=== PATIENT | male | born 1955 | race Caucasian/White ===

== ENCOUNTER → 2019-09-25 10:46 | Outpatient (CLI) | payer BC, SELFPAY | PROVIDERS: PCP Family Medicine; Visit Provider Family Medicine | DX: R00.2 Palpitations (principal) | CPT/HCPCS: 93225; 93226 ==

== ENCOUNTER → 2019-09-30 10:07 | Outpatient (CLI) | payer BC, SELFPAY | PROVIDERS: PCP Family Medicine; Visit Provider Family Medicine | DX: R00.2 Palpitations (principal) | CPT/HCPCS: 93306 ==

== ENCOUNTER → 2019-10-15 09:05 | Outpatient (CLI) | payer BC, SELFPAY ==
[2019-10-15 10:31] LABS: Basophils % 0.7 % (0.1-2.0); Eosinophils # 0.2 K/mm3 (0.0-0.4); Hematocrit 35.8 % (42.0-52.0); Hemoglobin 10.4 g/dL (14.1-18.0); Lymphocytes # 1.8 K/mm3 (0.7-4.5); Mean Corpuscular HGB Conc 29.1 g/dL (31.8-35.4); Mean Corpuscular Hemoglobin 24.1 pg (27.0-31.2); Mean Corpuscular Volume 82.8 fl (80-94); Mean Platelet Volume 7.9 fl (7.4-10.4); Monocytes # 0.4 K/mm3 (0.1-1.0); Monocytes % 7.7 % (1.7-9.3); Neutrophils # 3.3 K/mm3 (1.8-7.8); Neutrophils % 57.7 % (37.0-80.0); Platelet Count 335 K/mm3 (142-424); Red Blood Count 4.33 M/mm3 (4.60-6.20); Red Cell Distribution Width 15.6 % (11.5-17.5); White Blood Count 5.7 K/mm3 (4.8-10.8)
== END ==
PROVIDERS: Visit Provider Family Medicine
DX: D64.9 Anemia, unspecified (principal)
CPT/HCPCS: 36415; 85025

== ENCOUNTER 2019-10-24 07:59 | Day surgery (SDC) | payer BC, SELFPAY ==
[2019-09-15 15:52] VITALS: BMI 25.7
[2019-10-24] VITALS (7 sets, daily range): BP systolic 94–163; BP diastolic 63–90; PULSE 68–77; RESP 16–18; TEMP 36.2; O2SAT 97–100
[2019-10-24 08:39] LABS: POC Glucose,Bedside 109 (70-110)
--- NOTE | 2019-10-24 08:56 | P.PN_ITS ---
[facility] Anesthesia Checklist - Patient Identification Patient Identification: Arm Band - Structural Data Admitted From: Home Planned Operative Procedure/s: colonoscopy Consent for Planned Operative Procedure(s) Verified: Yes Verified Documents: Surgical Consent, History and Physical - NPO Status Verified Time NPO: 00:00 - Additional verifications Anesthesia Reactions: No - Airway Assessment C-Spine Mobility Assessed: Yes (mp2) TMJ Mobility Assessed: Yes Dentition: Partials - Neurological Assessment Level of Consciousness: Awake, Alert - Anesthesia Plan Anesthesia Risk discussed: Yes Anesthesia Plan: Verified ASA Class: II Anesthesia Type: MAC [facility] History I have reviewed the patient's past medical history: Yes Medical History: Reports:: Diabetes Mellitus Type 2, Hyperlipidemia Denies:: Cancer, Diabetes Mellitus Type 1, Internal Pacemaker, MRSA, Seizures *Have you ever received a pneumonia vaccine?: Yes *Have you received a flu vaccine this season?: Yes Other Medical History: Reports: Anemia Anesthesia experience/problems:: nac Other Surgeries: Yes: No Previous Surgery. No: Pacemaker Amputation: No Fractures: No - *Social History Educational Level: Completed College Smoking Status: Former smoker Tobacco Type: cigarettes Alcohol Intake: never Substance Use Type: denies use *Occupational Status:: employed Housing: house Household Members: spouse *Travel in the last 8 weeks: None Family Hx:: Cancer, Diabetes, Hyperlipidemia, Hypertension
--- NOTE | 2019-10-24 09:45 | HMH.PROC ---
[facility] Procedure Note Procedure Note:: Colonoscopy Procedure Report: Colonoscopy with APC ablation and cold snare polypectomy Endoscopist: Daniel Gómez II, MD Referring physician: Lobo Rondon MD Date of Procedure: October 24, 2019 Equipment: Olympus 180 variable stiffness pediatric colonoscope Sedation: MAC sedation Indication: Mr. Roy is a 64-year-old gentleman who is here for diagnostic colonoscopy secondary to rectal bleeding and iron deficiency anemia. He has never had a colonoscopy. He reports a nosebleed in June 2019 and his hemoglobin and hematocrit were normal. He had a bout of rectal bleeding 1 time in mid August 2019 which was bright red blood in the commode. At that time he had blood work that showed hemoglobin 9.1 and hematocrit 27.5 with an MCV of 79.6. He had 1 bout of left flank discomfort about a week ago. He reports no significant abdominal pain, weight loss, change in his bowel habits or family history of colon cancer. He reports no use of anticoagulation or NSAIDs. Procedure: Prior to the procedure, a history and physical exam was performed, and patient's medications and allergies were reviewed. The risks, benefits and alternatives of the sedation and procedure were discussed with the patient. All questions were answered and informed consent was obtained. The patient was brought to the procedure room. Patient identification and proposed procedure were verified by the physician and the nurse. The patient was placed in a left lateral decubitus position and the scope was passed under direct vision. Throughout the procedure, the patient's blood pressure, pulse, and oxygen saturations were monitored continuously. The colonoscopy was accomplished without difficulty. The patient tolerated the procedure well. Findings: On digital rectal examination there was normal rectal tone. There were no external hemorrhoids. The prostate was 2+, smooth, soft, symmetric without nodules. The colonoscope was introduced through the anal canal to the rectum and advanced to the cecum. The ileocecal valve and appendiceal orifice were identified. The scope was advanced a short distance into the ileum which appeared grossly normal. The scope was then withdrawn into the colon. There was a 4 mm angiodysplasia/AVM of the cecum that was cauterized using APC ablation. The remainder of the ascending, transverse colon were normal. There was a diminutive 4 mm polyp in the descending colon and a 3 mm polyp in the sigmoid colon both of which were removed via cold snare polypectomy. The rectum itself was normal. Upon retroflexion within the rectum there were grade 1-2 internal hemorrhoids.The preparation was excellent throughout with [place] Preparation Score of 9. The cecal time was 12 minutes. Impression: 1. Cecal AVM/angiodysplasia status post APC ablation 2. Diminutive colonic polyps x2 3. Grade 1-2 internal hemorrhoids Plan: I do suspect the bleeding was hemorrhoidal in nature. However, I do not feel that the hemorrhoids would explain the anemia. I do feel that the angiodysplasia of the cecum may have resulted in some chronic gastrointestinal blood loss. It is also possible that he has other angiodysplasias/AVMs of the upper and mid bowel. I will recommend Hemoccult testing. If the patient is strongly Hemoccult positive, I would consider upper endoscopy and possibly video capsule enteroscopy/M2A. I will follow-up the polyp histology and recommend repeat screening/surveillance colonoscopy again in 7 years if the polyps are adenomatous. I would encourage bulk fiber supplementation on a maintenance basis.
== END 2019-10-24 10:44 | disposition home or self-care (01) ==
PROVIDERS: PCP Family Medicine; Visit Provider Internal Medicine Gastroenterology
PROC: 0DJD8ZZ Inspection of Lower Intestinal Tract, Via Natural or Artificial Opening Endoscopic (ICD-10-PCS; CPT 45378; principal; 2019-10-24 09:00)
DX: K55.20 Angiodysplasia of colon without hemorrhage; K63.5 Polyp of colon; K64.0 First degree hemorrhoids; E78.5 Hyperlipidemia, unspecified; E11.9 Type 2 diabetes mellitus without complications
CPT/HCPCS: 45388; 45385; 82962; C2618

== ENCOUNTER → 2019-10-25 06:00 | Outpatient (CLI) | payer BC, SELFPAY ==
[2019-10-29 13:45] LABS: Occult Blood,Stool Negative (Negative)
== END ==
PROVIDERS: Visit Provider Internal Medicine Gastroenterology
DX: D50.9 Iron deficiency anemia, unspecified (principal)
CPT/HCPCS: 82272; G0328

== ENCOUNTER → 2019-10-26 06:00 | Outpatient (CLI) | payer BC, SELFPAY ==
[2019-10-29 13:46] LABS: Occult Blood,Stool Positive (Negative)
== END ==
PROVIDERS: Visit Provider Internal Medicine Gastroenterology
DX: D50.9 Iron deficiency anemia, unspecified (principal)
CPT/HCPCS: 82272; G0328

== ENCOUNTER → 2019-10-29 13:17 | Outpatient (CLI) | payer BC, SELFPAY ==
[2019-10-29 13:46] LABS: Occult Blood,Stool Positive (Negative)
== END ==
PROVIDERS: Visit Provider Internal Medicine Gastroenterology
DX: D50.9 Iron deficiency anemia, unspecified (principal)
CPT/HCPCS: 82272; G0328

== ENCOUNTER 2019-11-07 06:52 | Day surgery (SDC) | payer BC, SELFPAY ==
[2019-11-04 08:50] VITALS: BMI 25.7
[2019-11-07] VITALS (7 sets, daily range): BP systolic 101–153; BP diastolic 63–85; PULSE 56–74; RESP 18; TEMP 35.8–36.4; O2SAT 95–100
--- NOTE | 2019-11-07 07:24 | HMH.ANESCL ---
[facility] Anesthesia Checklist - Patient Identification Patient Identification: Arm Band, Verbal (Name & ) - Structural Data Admitted From: Home Planned Operative Procedure/s: EGD Consent for Planned Operative Procedure(s) Verified: Yes Verified Documents: Surgical Consent, History and Physical - NPO Status Verified Time NPO: 00:00 - Chart Verification Results Verified: CBC, BMP, UA - Additional verifications Anesthesia Reactions: No - Airway Assessment C-Spine Mobility Assessed: Yes TMJ Mobility Assessed: Yes Dentition: Partials (upper) - Neurological Assessment Level of Consciousness: Awake, Alert, Appropriate, Follows Commands Hx Seizures: No Numbness or tingling in extremities: No - Anesthesia Plan Anesthesia Risk discussed: Yes Anesthesia Plan: Verified ASA Class: III Anesthesia Type: MAC [facility] History I have reviewed the patient's past medical history: Yes Medical History: Reports:: Diabetes Mellitus Type 2, Hyperlipidemia, Transient Ischemic Attacks (TIA) Denies:: Cancer, Diabetes Mellitus Type 1, Internal Pacemaker, MRSA, Seizures *Have you ever received a pneumonia vaccine?: Yes *Have you received a flu vaccine this season?: Yes Other Medical History: Reports: Anemia Anesthesia experience/problems:: No prior complications Other Surgeries: Yes: No Previous Surgery. No: Pacemaker Amputation: No Fractures: No - *Social History Educational Level: Completed GED/General Educational Development Smoking Status: Former smoker Tobacco Type: cigarettes #Yrs smoked (if former smoker): 2 Alcohol Intake: current Alcohol Intake Frequency:: holidays/special occasions only Substance Use Type: denies use *Occupational Status:: employed Housing: house Household Members: spouse *Travel in the last 8 weeks: None Family Hx:: Cancer, Diabetes
--- NOTE | 2019-11-07 07:58 | HMH.PROC ---
[facility] Procedure Note Procedure Note:: Upper Endoscopy Procedure Report: Esophagogastroduodenoscopy with APC ablation and cold biopsies Endoscopost: Daniel Gómez II, MD Referring Physician: Lobo Rondon MD Date of Procedure: November 07, 2019 Equipment: Olympus GIF 180 standard upper endoscope Sedation: MAC sedation Indications: Mr. Roy is a 64-year-old gentleman with iron deficiency anemia and Hemoccult positive stool. He initially had some rectal bleeding. His hemoglobin and hematocrit in mid August 2019 was 9.1 and 27.5 with an MCV of 79.6. He has some rare left sided abdominal discomfort. He did have a colonoscopy on October 24, 2019 and there was a cecal angiodysplasia that was cauterized using APC ablation. He had 2 diminutive polyps (tubular adenoma x1/hyperplastic polyp x1) which were removed. He subsequently had Hemoccult testing and 2 out of 3 Hemoccult cards were positive for occult blood. He reports no abdominal pain, heartburn, reflux or dysphagia. He has no indigestion or dyspepsia. He takes lemon water and Metamucil regularly. This is his first upper endoscopy performed diagnostically for evaluation of occult GI bleeding. Procedure: Prior to the procedure, a history and physical exam was performed, and patient's medications and allergies were reviewed. The risks, benefits and alternatives of the sedation and procedure were discussed with the patient. All questions were answered and informed consent was obtained. The patient was brought to the procedure room. Patient identification and proposed procedure were verified by the physician and the nurse. The patient was placed in a left lateral decubitus position and the scope was passed under direct vision. Throughout the procedure, the patient's blood pressure, pulse, and oxygen saturations were monitored continuously. The upper GI endoscopy was accomplished without difficulty. The patient tolerated the procedure well. Findings: The scope was passed directly into the upper esophagus and advanced to the third portion of the duodenum. There was a single angiodysplasia/AVM in the duodenum that was cauterized using APC ablation. Cold biopsies were taken from the duodenum to rule out celiac disease. The duodenal mucosa and conniventes were otherwise normal with no evidence of scalloping, erosions or ulceration of the duodenum. The scope was withdrawn through a normal bulb and pylorus into the stomach. There was some mild linear reactive gastropathy of the antrum. There was some chronic gastritis of the body and fundus of the stomach. Cold biopsies were taken along the lesser curvature for H. pylori. Upon retroflexion there was no evidence of a hiatal hernia. The scope was then withdrawn into the esophagus. There was no evidence of reflux esophagitis, Coughlin's or Schatzki's ring. There were no esophageal varices. The remainder of the esophageal mucosa was normal. Impression: 1. 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 Chronic gastritis with some mild antral reactive gastropathy?rule out H. pylori Plan: I will follow-up the biopsies. I do feel that the patient is Hemoccult positive stool and anemia are related to the gastrointestinal AVMs/angiodysplasias. If the patient remains Hemoccult positive or anemic, I would consider video capsule enteroscopy/M2A.
[2019-11-07 18:06] LABS: POC Glucose,Bedside 110 (70-110)
== END 2019-11-07 09:00 | disposition home or self-care (01) ==
PROVIDERS: PCP Family Medicine; Visit Provider Internal Medicine Gastroenterology
PROC: 0DJ08ZZ Inspection of Upper Intestinal Tract, Via Natural or Artificial Opening Endoscopic (ICD-10-PCS; CPT 43235; principal; 2019-11-07 08:00)
DX: D50.8 Other iron deficiency anemias (principal); K31.811 Angiodysplasia of stomach and duodenum with bleeding; K29.50 Unspecified chronic gastritis without bleeding; Z86.010 Personal history of colon polyps; E11.9 Type 2 diabetes mellitus without complications; Z79.84 Long term (current) use of oral hypoglycemic drugs
CPT/HCPCS: 43254; 43270; 82962; C2618; J2704

== ENCOUNTER → 2019-11-14 15:10 | Outpatient (CLI) | payer BC, SELFPAY ==
[2019-11-24 15:50] LABS: Occult Blood,Stool Positive (Negative)
== END ==
PROVIDERS: Visit Provider Internal Medicine Gastroenterology
DX: K92.1 Melena (principal)
CPT/HCPCS: 82272; G0328

== ENCOUNTER → 2019-11-17 15:19 | Outpatient (CLI) | payer BC, SELFPAY ==
[2019-11-24 15:50] LABS: Occult Blood,Stool Positive (Negative)
== END ==
PROVIDERS: Visit Provider Internal Medicine Gastroenterology
DX: K92.1 Melena (principal)
CPT/HCPCS: 82272; G0328

== ENCOUNTER → 2019-11-22 15:23 | Outpatient (CLI) | payer BC, SELFPAY ==
[2019-11-24 15:50] LABS: Occult Blood,Stool Positive (Negative)
== END ==
PROVIDERS: Visit Provider Internal Medicine Gastroenterology
DX: K92.1 Melena (principal)
CPT/HCPCS: 82272; G0328

== ENCOUNTER → 2019-12-22 08:34 | Outpatient (CLI) | payer BC, SELFPAY ==
[2019-12-22 09:18] LABS: Basophils % 0.7 % (0.1-2.0); Eosinophils # 0.2 K/mm3 (0.0-0.4); Eosinophils % 3.7 % (0.1-12.0); Hematocrit 39.3 % (42.0-52.0); Hemoglobin 12.4 g/dL (14.1-18.0); Lymphocytes # 1.9 K/mm3 (0.7-4.5); Lymphocytes % 35.2 % (10-50); Mean Corpuscular HGB Conc 31.6 g/dL (31.8-35.4); Mean Corpuscular Hemoglobin 25.4 pg (27.0-31.2); Mean Corpuscular Volume 80.4 fl (80-94); Mean Platelet Volume 7.8 fl (7.4-10.4); Monocytes # 0.4 K/mm3 (0.1-1.0); Monocytes % 8.1 % (1.7-9.3); Neutrophils # 2.9 K/mm3 (1.8-7.8); Neutrophils % 52.3 % (37.0-80.0); Platelet Count 214 K/mm3 (142-424); Red Blood Count 4.89 M/mm3 (4.60-6.20); Red Cell Distribution Width 17.7 % (11.5-17.5); White Blood Count 5.5 K/mm3 (4.8-10.8)
[2019-12-22 11:10] LABS: Ferritin 8.02 ng/ml (17.9-464)
[2019-12-23 08:17] LABS: Iron 40 ug/dL (38-169); UIBC 319 ug/dL (111-343)
[2019-12-23 09:54] LABS: Iron Saturation 11 % (15-55)
== END ==
PROVIDERS: Visit Provider Internal Medicine Gastroenterology
DX: D64.9 Anemia, unspecified (principal); K92.1 Melena
CPT/HCPCS: 36415; 82728; 83540; 83550; 85025

== ENCOUNTER → 2019-12-25 14:12 | Outpatient (CLI) | payer BC, SELFPAY ==
[2019-12-25 14:49] LABS: Occult Blood,Stool Positive (Negative)
== END ==
PROVIDERS: Visit Provider Internal Medicine Gastroenterology
DX: D64.9 Anemia, unspecified (principal); K92.1 Melena
CPT/HCPCS: 82272; G0328

== ENCOUNTER → 2020-03-16 09:57 | Outpatient (CLI) | payer BC, SELFPAY ==
--- NOTE | 2020-03-16 10:01 | XR_ITS ---
PROCEDURE: XR KUB CLINICAL INDICATION: ANEMIA,UNSPECIFIED patient swallowed endoscopy pill 03/11/2020 COMPARISON: No exams were available for comparison FINDINGS: Gas pattern-The bowel gas pattern is unremarkable. No obvious obstruction. There are 2 smoothly marginated tubular structures projecting over the right iliac bone and possibly within the cecum. They do not have the typical appearance of a swallowed camera pill and could be undigested pills or possibly calcified granulomas in the right buttock.. There are scattered calcifications within the spleen. There are few phleboliths in the pelvis. IMPRESSION: Curious tubular structures projecting over the iliac bone and likely within the cecum not quite typical of the ingested camera pill though this cannot be entirely excluded. Dictated by: Dr. Duran Rossi MD 03/16/2020 10:39 Dr. Duran Rossi MD in [place] 03/16/2020 10:39
== END ==
PROVIDERS: PCP Family Medicine; Visit Provider Internal Medicine Gastroenterology
DX: D64.9 Anemia, unspecified (principal)
CPT/HCPCS: 74018

== ENCOUNTER → 2020-04-28 13:37 | Outpatient (CLI) | payer BC, SELFPAY ==
[2020-04-28 15:11] LABS: Coronavirus 19 IgG Antibody Negative (Negative); Coronavirus 19 IgM Antibody Negative (Negative)
== END ==
PROVIDERS: Visit Provider Internal Medicine Gastroenterology
DX: Z01.818 Encounter for other preprocedural examination (principal); R93.3 Abnormal findings on diagnostic imaging of other parts of digestive tract
CPT/HCPCS: 36415; 86328

== ENCOUNTER 2020-04-30 06:52 | Day surgery (SDC) | payer BC, SELFPAY ==
[2020-04-23 13:34] VITALS: BMI 24.7
[2020-04-30] VITALS (10 sets, daily range): BP systolic 94–153; BP diastolic 60–91; PULSE 50–74; RESP 16–18; TEMP 36.2; O2SAT 97–99
[2020-04-30 07:24] LABS: POC Glucose,Bedside 106 (70-110)
--- NOTE | 2020-04-30 07:50 | HMH.PROC ---
[facility] Procedure Note Procedure Note:: Push enteroscopy/small bowel enteroscopy procedure Report: Upper small bowel push enteroscopy with APC ablation and cold biopsies Endoscopost: Daniel Gómez II, MD Referring Physician: Lobo Rondon MD Date of Procedure: April 30, 2020 Equipment: Olympus PCF 180 pediatric colonoscope (variable stiffness) Sedation: MAC sedation Indications: Mr. Roy is a 64-year-old gentleman with iron deficiency anemia and Hemoccult positive stool. He has had only one episode of overt bleeding. He has been Hemoccult positive on more than one occasion. In mid August his hemoglobin and hematocrit were 9.1 and 27.5. His EGD did show duodenal angiodysplasia and reactive gastropathy. A repeat Hemoccult test was again positive. His ferritin was 8 with an iron saturation of 11%. He had a colonoscopy with me in October 2019 that showed a cecal AVM that was ablated using APC and 2 diminutive colon polyps (tubular adenoma x1/hyperplastic polyp x1) which were removed. He did have M2A video capsule enteroscopy on March 10, 2020. This did show numerous upper small bowel AVMs/angiodysplasias. The patient is here today for small bowel enteroscopy/push enteroscopy with possible ablation. Procedure: Prior to the procedure, a history and physical exam was performed, and patient's medications and allergies were reviewed. The risks, benefits and alternatives of the sedation and procedure were discussed with the patient. All questions were answered and informed consent was obtained. The patient was brought to the procedure room. Patient identification and proposed procedure were verified by the physician and the nurse. The patient was placed in a left lateral decubitus position and the scope was passed under direct vision. Throughout the procedure, the patient's blood pressure, pulse, and oxygen saturations were monitored continuously. The upper small bowel enteroscopy was accomplished without difficulty. The patient tolerated the procedure well. Findings: The scope was passed directly into the upper esophagus and advanced to the mid jejunum. The scope was advanced maximally. At the very far reach of the colonoscope, there was active heme identified from a bleeding AVM. Because it was just out of reach, eventually the area was cleared and any visible AVMs/angiodysplasias in this region were cauterized. A total of 8 AVMs/angiodysplasias were cauterized in the jejunum and distal duodenum using APC argon plasma coagulation. This was discerned to be the actual source of his obscure GI blood loss. All visible AVMs were cauterized and the prior bleeding AVM stopped with coagulation/control of bleeding. The scope was withdrawn to a mildly edematous bulb (mild peptic duodenitis of bulb) and normal pylorus into the stomach. There was mild linear reactive gastropathy of the antrum. There was evidence of chronic atrophic gastritis of the body and fundus. Biopsies were taken from the fundus of the stomach. Upon retroflexion there was no hiatal hernia. The scope was then withdrawn into the esophagus. There was no evidence of reflux esophagitis or Coughlin's. The remainder of the esophageal mucosa was normal. Impression: 1. Bleeding AVMs/angiodysplasias (proximal/mid small intestine?duodenum and jejunum) with 1 actively bleeding AVM status post APC ablation 2. Chronic atrophic gastritis Plan: The patient has not required blood transfusions or parenteral iron infusions. However, he has had moderate anemia. I would continue oral iron replacement on a maintenance basis. If the patient has any further overt bleeding, I would recommend repeat enteroscopy or even single or double balloon enteroscopy. I will discussed the findings with the patient and family. I will follow up the biopsies. Certainly atrophic gastritis can play a role with iron deficiency.
--- NOTE | 2020-04-30 09:09 | HMH.ANESCL ---
[facility] Anesthesia Checklist - Patient Identification Patient Identification: Arm Band - Structural Data Admitted From: Home Planned Operative Procedure/s: push enteroscopy Consent for Planned Operative Procedure(s) Verified: Yes Verified Documents: Surgical Consent, History and Physical - NPO Status Verified Time NPO: 00:00 - Additional verifications Anesthesia Reactions: No - Airway Assessment C-Spine Mobility Assessed: Yes (mp2) TMJ Mobility Assessed: Yes Dentition: Poor Dentition - Neurological Assessment Level of Consciousness: Awake, Alert - Anesthesia Plan Anesthesia Risk discussed: Yes Anesthesia Plan: Verified ASA Class: III Anesthesia Type: MAC [facility] History I have reviewed the patient's past medical history: Yes Medical History: Reports:: Diabetes Mellitus Type 2, Hyperlipidemia, Transient Ischemic Attacks (TIA) Denies:: Cancer, Diabetes Mellitus Type 1, Internal Pacemaker, MRSA, Seizures *Have you ever received a pneumonia vaccine?: Yes *Have you received a flu vaccine this season?: No Other Medical History: Reports: Anemia Anesthesia experience/problems:: nac Other Surgeries: Yes: EGD. No: Pacemaker Amputation: No Fractures: No - *Social History Last grade of school completed: GED Smoking Status: Never smoker Tobacco Type: cigarettes #Yrs smoked (if former smoker): 2 Alcohol Intake: never Alcohol Intake Frequency:: holidays/special occasions only Substance Use Type: denies use *Occupational Status:: employed Housing: house Household Members: spouse *Travel in the last 8 weeks: None Family Hx:: Cancer, Diabetes
[2020-04-30 10:01] LABS: Basophils % 0.7 % (0.1-2.0); Eosinophils # 0.1 K/mm3 (0.0-0.4); Eosinophils % 2.1 % (0.1-12.0); Hematocrit 41.7 % (42.0-52.0); Hemoglobin 13.3 g/dL (14.1-18.0); Lymphocytes # 1.9 K/mm3 (0.7-4.5); Lymphocytes % 29.7 % (10-50); Mean Corpuscular HGB Conc 31.9 g/dL (31.8-35.4); Mean Corpuscular Hemoglobin 28.2 pg (27.0-31.2); Mean Corpuscular Volume 88.2 fl (80-94); Mean Platelet Volume 7.7 fl (7.4-10.4); Monocytes # 0.6 K/mm3 (0.1-1.0); Monocytes % 8.7 % (1.7-9.3); Neutrophils # 3.8 K/mm3 (1.8-7.8); Neutrophils % 58.8 % (37.0-80.0); Platelet Count 207 K/mm3 (142-424); Red Blood Count 4.73 M/mm3 (4.60-6.20); Red Cell Distribution Width 14.5 % (11.5-17.5); White Blood Count 6.4 K/mm3 (4.8-10.8)
[2020-04-30 10:08] LABS: Iron 57 ug/dL (49-181)
[2020-04-30 10:18] LABS: Total Iron Binding Capacity 332 ug/dL (261-462)
[2020-04-30 10:44] LABS: Ferritin 18.2 ng/ml (17.9-464)
== END 2020-04-30 10:30 | disposition home or self-care (01) ==
LOC: OUTP 06:53
PROVIDERS: PCP Family Medicine; Visit Provider Internal Medicine Gastroenterology
PROC: (CPT 44360; principal; 2020-04-30 08:00)
DX: Q27.33 Arteriovenous malformation of digestive system vessel (principal); K29.40 Chronic atrophic gastritis without bleeding; Z87.19 Personal history of other diseases of the digestive system; D50.9 Iron deficiency anemia, unspecified; E78.5 Hyperlipidemia, unspecified; E11.9 Type 2 diabetes mellitus without complications; Z72.0 Tobacco use; Z80.9 Family history of malignant neoplasm, unspecified; Z83.3 Family history of diabetes mellitus; Z86.73 Personal history of transient ischemic attack (TIA), and cerebral infarction without residual deficits; Z79.82 Long term (current) use of aspirin; Z79.84 Long term (current) use of oral hypoglycemic drugs
CPT/HCPCS: 44369; 44361; 36415; 82728; 82962; 83540; 83550; 85025; C2618

== ENCOUNTER → 2020-07-26 08:37 | Outpatient (CLI) | payer BC, SELFPAY ==
[2020-07-29 08:54] LABS: Occult Blood,Stool Positive (Negative)
== END ==
LOC: LAB 07-29 08:38 → LAB.DROPOF 07-30 10:05
PROVIDERS: Visit Provider Nurse Practitioner Family
DX: D64.9 Anemia, unspecified (principal); K92.1 Melena
CPT/HCPCS: 82272; G0328

== ENCOUNTER → 2020-07-26 10:06 | Outpatient (CLI) | payer BC, SELFPAY ==
[2020-07-26 10:31] LABS: Basophils # 0.1 K/mm3 (0-0.2); Eosinophils # 0.2 K/mm3 (0.0-0.4); Eosinophils % 2.8 % (0.1-12.0); Hematocrit 49.5 % (42.0-52.0); Hemoglobin 15.9 g/dL (14.1-18.0); Lymphocytes # 2.3 K/mm3 (0.7-4.5); Lymphocytes % 36.3 % (10-50); Mean Corpuscular HGB Conc 32.1 g/dL (31.8-35.4); Mean Corpuscular Volume 90.5 fl (80-94); Mean Platelet Volume 7.7 fl (7.4-10.4); Monocytes # 0.5 K/mm3 (0.1-1.0); Monocytes % 7.7 % (1.7-9.3); Neutrophils # 3.3 K/mm3 (1.8-7.8); Neutrophils % 52.2 % (37.0-80.0); Platelet Count 224 K/mm3 (142-424); Red Blood Count 5.48 M/mm3 (4.60-6.20); Red Cell Distribution Width 13.7 % (11.5-17.5); White Blood Count 6.4 K/mm3 (4.8-10.8)
[2020-07-26 11:18] LABS: Iron 105 ug/dL (49-181)
[2020-07-26 11:54] LABS: Ferritin 25.1 ng/ml (17.9-464)
== END ==
PROVIDERS: Visit Provider Internal Medicine Gastroenterology
DX: D50.9 Iron deficiency anemia, unspecified (principal); R00.2 Palpitations; B96.81 Helicobacter pylori [H. pylori] as the cause of diseases classified elsewhere; K31.811 Angiodysplasia of stomach and duodenum with bleeding
CPT/HCPCS: 36415; 82728; 83540; 85025

== ENCOUNTER → 2020-07-26 13:06 | Outpatient (POV) | payer BC, SELFPAY | PROVIDERS: Visit Provider Nurse Practitioner Family | DX: Z00.00 Encounter for general adult medical examination without abnormal findings (principal) ==

== ENCOUNTER → 2020-07-27 08:20 | Outpatient (CLI) | payer BC, SELFPAY | PROVIDERS: Visit Provider Nurse Practitioner Family | DX: D64.9 Anemia, unspecified (principal) ==

== ENCOUNTER → 2020-07-27 08:34 | Outpatient (CLI) | payer BC, SELFPAY ==
[2020-07-29 08:55] LABS: Occult Blood,Stool Positive (Negative)
== END ==
LOC: LAB 07-30 10:04 → LAB.DROPOF 07-30 10:05
PROVIDERS: Visit Provider Nurse Practitioner Family
DX: D64.9 Anemia, unspecified (principal)
CPT/HCPCS: 82272; G0328

== ENCOUNTER → 2020-07-28 18:00 | Outpatient (CLI) | payer BC, SELFPAY ==
[2020-07-29 08:54] LABS: Occult Blood,Stool Negative (Negative)
== END ==
PROVIDERS: Visit Provider Nurse Practitioner Family
DX: D64.9 Anemia, unspecified (principal)
CPT/HCPCS: 82272; G0328

== ENCOUNTER 2020-10-03 21:25 | Inpatient (IN) | payer BC, SELFPAY ==
[2020-10-03 21:26] VITALS: BP 164/90; PULSE 77; RESP 16; TEMP 36.7; O2SAT 99; BMI 25.1
--- NOTE | 2020-10-03 21:36 | XR_ITS ---
PROCEDURE: XR CHEST 2V CLINICAL HISTORY: Chest pain COMPARISON: CR CXR CHEST(2 VIEWS-NOT PORTABLE) from 05/08/2014 CR CXR2V XR chest 2V from 11/08/2017 FINDINGS: The cardiomediastinal silhouette and pulmonary vascularity are within normal limits. There is mild coarsening of the bronchovascular markings which may be seen with smoking related lung disease. Slight increased markings are present in the right suprahilar region and in the anterior clear space. Possibly due to summation artifact. Stability may be confirmed with follow-up. The remaining lungs are clear. No lobar consolidation or collapse. No acute bony abnormalities. IMPRESSION: No acute finding. Coarsening of the bronchovascular markings which may be seen with smoking related lung disease with nonspecific increased markings in the right suprahilar region and anterior clear space possibly due to summation artifact. Stability may be confirmed with follow-up Dictated by: Francois Jasso MD 10/04/2020 05:25 Francois Jasso MD in [place] 10/04/2020 05:25
--- NOTE | 2020-10-03 21:36 | ECG_ITS ---
APPROVED REPORT Exam: Resting ECG HR:61 bpm ECG Measurements Heart Rate 61 AXES IA 136 P 54 QRSd 142 QRS 90 QT 422 T 62 QTc 424 Conclusion Normal sinus rhythm Right bundle branch block Abnormal ECG Electronically signed by : Cem Armas, 10/04/2020 17:21:37
--- NOTE | 2020-10-03 21:42 | HMH.EDCP ---
ED Disposition Clinical Impression: Unstable angina pectoris, RBBB, Tobacco use Diabetes mellitus Qualifiers: Diabetes mellitus type: type 2 Diabetes mellitus fdc insulin use: unspecified rodent exterminator insulin use status Diabetes mellitus complication status: with other specified complication Qualified Code(s): E11.69 - Type 2 diabetes mellitus with other specified complication Disposition: Admitted as Observation Condition on Discharge: Good Referrals: PCP,No [Non-Staff] - - Critical Care Critical Care Time: No Attestation: On 10/03/20, the high probability of a clinically significant, sudden or life threatening deterioration of the following system(s) required my full and direct attention, intervention and personal management. The time I documented below is in addition to time spent performing reported procedures but includes the following listed in this critical care notation. Medical Decision Making - Medical Records Medical records reviewed: Yes: I reviewed the patient's medical records. - Alex Inquiry Pt receiving controlled substance: No Vital Signs: 10/03/20 21:26 10/03/20 22:30 Temperature 98.1 F Temperature Source Oral Pulse Rate 67 Pulse Rate [Right] 77 Respiratory Rate 16 14 Blood Pressure 119/75 Blood Pressure [Right Arm] 164/90 H Blood Pressure Mean 89 Blood Pressure Mean [Right Arm] 114 Blood Pressure Source [Right Arm] Automatic Cuff Blood Pressure Position [Right Arm] Supine 02 Sat by Pulse Oximetry 99 97 Oxygen Delivery Method Room Air - Lab Data Lab results reviewed: Yes: I reviewed the patient's lab results. Lab Results 10/03/20 21:20: WBC 8.1, RBC 4.81, Hgb 13.8 L, Hct 42.0, MCV 87.2, MCH 28.8, MCHC 33.0, RDW 13.8, Plt Count 230, MPV 7.7, Neut % (Auto) 61.9, Lymph % (Auto) 28.9, [place] % (Auto) 6.5, Eos % (Auto) 2.2, Baso % (Auto) 0.5, Neut # (Auto) 5.0, Lymph # (Auto) 2.4, [place] # (Auto) 0.5, Eos # (Auto) 0.2, Baso # (Auto) 0.0 10/03/20 21:20: Sodium 138, Potassium 4.0, Chloride 103, Carbon Dioxide 29, Anion Gap 10.0, BUN 14, Creatinine 1.20, Estimated Creat Clear 68, Estimated GFR 61, Est GFR ( Amer) 74, Glucose 148 H, Calcium 9.4, Total Bilirubin 0.4, Direct Bilirubin 0.2, Conjugated Bilirubin 0.0, Indirect Bilirubin 0.2, Unconjugated Bilirubin 0.2, AST 22, ALT 23, Alkaline Phosphatase 64, Troponin I < 0.01, C-Reactive Protein 1.2, Total Protein 7.3, Albumin 4.8 10/03/20 21:20: ESR 1 Result diagrams: 10/03/20 21:20 10/03/20 21:20 Orders (Tests/Meds): ED MEDICATIONS Generic Name Dose Route Start Last Admin Trade Name Freq PRN Reason Stop Dose Admin Sodium Chloride 1,000 mls @ 999 mls/hr 10/03/20 21:45 10/03/20 21:40 Sod Chlor 0.9% 1000ml Bag IV 10/03/20 22:45 999 mls/hr .Q1H1M FRANCISCO Administration Discontinued Medications Generic Name Dose Route Start Last Admin Trade Name Freq PRN Reason Stop Dose Admin Aspirin 243 mg 10/03/20 21:38 10/03/20 21:40 Aspirin 81mg Chewable Tablet PO 10/03/20 21:39 243 mg ONCE ONE Administration Nitroglycerin 1 gm 10/03/20 21:36 10/03/20 21:41 Nitroglycerin 1 Gm Ointment TD 10/03/20 21:37 1 gm ONCE ONE Administration Nitroglycerin 0.4 mg 10/03/20 21:36 10/03/20 21:35 Nitroglycerin 0.4mg Sl Tablet SL 10/03/20 21:37 1 tab ONCE ONE Administration ORDERS Category Date Time Status XR chest 2V Stat Exams 10/03/20 21:36 Taken Full Resp Panel w/COVID ([facility]) Routine Lab 10/03/20 21:30 Received Procalcitonin Stat Lab 10/03/20 21:20 Received Troponin I Q3H Lab 10/04/20 00:45 Ordered Troponin I Q3H Lab 10/04/20 03:45 Ordered - Radiology Data #1 Image(s): Chest Image Reviewed: Yes I reviewed the patient's radiology image Preliminary Findings: Normal/NAD - ECG Data Tracing #1 Normal Sinus Rhythm: Yes Ischemic changes: non-specific ST-T wave changes Conduction abnormalities present: RBBB ECG compared to prior tracings: there are no significant c
[2020-10-03 21:55] LABS: Adenovirus,PCR Not Detected (NotDetected); Bordetella Pertussis Not Detected (NotDetected); Chlamydophila Pneumoniae, PCR Not Detected (NotDetected); Coronavirus 19, PCR Not Detected (NotDetected); Coronavirus 229E Not Detected (NotDetected); Coronavirus NL63 Not Detected (NotDetected); Coronavirus OC43 Not Detected (NotDetected); Coronovirus HKU1,PCR Not Detected (NotDetected); Human Metapneumovirus Not Detected (NotDetected); Influenza A, PCR Not Detected (NotDetected); Influenza AH1, 2009 Not Detected (NotDetected); Influenza AH1, PCR Not Detected (NotDetected); Influenza AH3,PCR Not Detected (NotDetected); Influenza B, PCR Not Detected (NotDetected); Mycoplasma Pneumoniae, PCR Not Detected (NotDetected); Parainfluenza 1, PCR Not Detected (NotDetected); Parainfluenza 2, PCR Not Detected (NotDetected); Parainfluenza 3, PCR Not Detected (NotDetected); Parainfluenza 4, PCR Not Detected (NotDetected); Respiratory Syncytial Virus Not Detected (NotDetected); Rhinovirus/Enterovirus Not Detected (NotDetected)
[2020-10-03 22:09] LABS: Basophils % 0.5 % (0.1-2.0); Eosinophils # 0.2 K/mm3 (0.0-0.4); Eosinophils % 2.2 % (0.1-12.0); Hemoglobin 13.8 g/dL (14.1-18.0); Lymphocytes # 2.4 K/mm3 (0.7-4.5); Lymphocytes % 28.9 % (10-50); Mean Corpuscular Hemoglobin 28.8 pg (27.0-31.2); Mean Corpuscular Volume 87.2 fl (80-94); Mean Platelet Volume 7.7 fl (7.4-10.4); Monocytes # 0.5 K/mm3 (0.1-1.0); Monocytes % 6.5 % (1.7-9.3); Neutrophils % 61.9 % (37.0-80.0); Platelet Count 230 K/mm3 (142-424); Red Blood Count 4.81 M/mm3 (4.60-6.20); Red Cell Distribution Width 13.8 % (11.5-17.5); White Blood Count 8.1 K/mm3 (4.8-10.8)
[2020-10-03 22:26] LABS: Chloride 103 mmol/L (98-107); Sodium 138 mmol/L (136-145)
[2020-10-03 22:29] LABS: Alanine Aminotransferase 23 U/L (12-78); Albumin Level 4.8 g/dl (3.5-5.0); Alkaline Phosphatase 64 U/L (38-126); Aspartate Amino Transferase 22 U/L (17-59); Bilirubin,Direct 0.2 mg/dl (0.0-0.4); Bilirubin,Indirect 0.2 mg/dL (0.0-0.9); Bilirubin,Total 0.4 mg/dl (0.2-1.3); Bilirubin,Unconjugated 0.2 mg/dL (0.0-1.1); Blood Urea Nitrogen 14 mg/dl (9-20); Calcium 9.4 mg/dl (8.4-10.2); Carbon Dioxide 29 mmol/L (22.0-30.0); Creatinine Clearance Estimated 68 mL/min (50-200); Estimated Glomerular Filt Rate 61 ml/min (>60); GFR (African American) 74 ML/MIN (>60); Glucose 148 mg/dl (74-100); Total Protein,Serum 7.3 g/dl (6.3-8.2)
[2020-10-03 22:30] VITALS: BP 119/75; PULSE 67; RESP 14; O2SAT 97
[2020-10-03 22:35] LABS: C-Reactive Protein 1.2 mg/L (0-4)
[2020-10-03 22:40] LABS: Erythrocyte Sedimentation Rate 1 mm/hr (0-20)
[2020-10-03 22:44] LABS: Troponin I < 0.01 ng/ml (0.00-0.034)
[2020-10-03 22:51] LABS: Procalcitonin 0.046 ng/mL (0.0-2.0)
[2020-10-03 23:33] VITALS: BP 126/74; PULSE 68; RESP 16; TEMP 36.7; O2SAT 97
--- NOTE | 2020-10-03 23:43 | PC.NURSE ---
PT ARRIVED TO FLOOR VIA WHEELCHAIR @ [id number]
[2020-10-03 23:51] VITALS: BP 139/83; PULSE 61; RESP 17; TEMP 36.6; O2SAT 98; BMI 24.5
[2020-10-03 23:52] VITALS: PULSE 60
[2020-10-04] VITALS (20 sets, daily range): BP systolic 108–160; BP diastolic 63–92; PULSE 60–97; RESP 16–20; TEMP 36.5–36.8; O2SAT 94–100; BMI 24.6
--- NOTE | 2020-10-04 | IR_ITS ---
APPROVED REPORT Patient Location: Inpatient Testing And Regulating Technician: JULIA Sheridan RT (R) PROCEDURES Left heart catheterization Left ventriculogram Selective coronary angiogram INDICATION Acute non-ST elevation myocardial infarction, Coronary disease Informed consent was obtained prior to the procedure. COMPLICATIONS NONE Estimated Blood Loss: LESS THAN 10 ML TECHNIQUE One percent lidocaine used to anesthetize the right anterior aspect of the wrist. The right radial artery was accessed via the Seldinger technique. A 6 Samoan sheath was placed in the right radial artery. 2.5 mg of verapamil, 800 mcg of nitroglycerin, 1mg Lidocaine and 5000 U Heparin were given through the arterial sheath. The Poppa catheter was also used to perform left heart catheterization, left ventriculogram and selective coronary angiogram. At the end of the procedure the sheath was removed good hemostasis was achieved using Traclet band, patient was transferred to the postop holding area in stable condition. ANGIOGRAPHIC RESULTS The left main artery Normal The left anterior descending artery Has a proximal concentric 90% stenosis followed by additional mid vessel 90% and 50% stenoses. A moderate-sized first diagonal artery has a proximal 50% stenosis The circumflex artery Is nondominant and gives rise to 2 moderate-sized first obtuse marginal arteries. The first obtuse marginal artery has mild 10 to 20% proximal stenoses with a mid vessel 40% stenosis. The second obtuse marginal artery has tandem 90% proximal stenoses The right coronary artery Is a dominant vessel and has mid vessel 30% stenosis followed by an additional concentric 90% stenosis The HERNANDEZ ventriculogram reveals Normal 65% The left ventricular end-diastolic pressure 20 mmHg IMPRESSION Severe three-vessel coronary artery disease Normal ejection fraction Elevated LVEDP PLAN 1. Patient be transferred to [facility] for coronary bypass surgery Electronically signed by : Vitaliy Huddleston, 10/04/2020 14:46:11
[2020-10-04 01:16] LABS: Troponin I 0.33 ng/ml (0.00-0.034)
[2020-10-04 04:19] LABS: Basophils % 0.6 % (0.1-2.0); Eosinophils # 0.2 K/mm3 (0.0-0.4); Eosinophils % 2.4 % (0.1-12.0); Lymphocytes # 2.6 K/mm3 (0.7-4.5); Lymphocytes % 38.7 % (10-50); Mean Corpuscular HGB Conc 32.4 g/dL (31.8-35.4); Mean Corpuscular Hemoglobin 28.7 pg (27.0-31.2); Mean Corpuscular Volume 88.4 fl (80-94); Mean Platelet Volume 8.2 fl (7.4-10.4); Monocytes # 0.6 K/mm3 (0.1-1.0); Monocytes % 8.4 % (1.7-9.3); Neutrophils # 3.4 K/mm3 (1.8-7.8); Neutrophils % 49.9 % (37.0-80.0); Platelet Count 199 K/mm3 (142-424); White Blood Count 6.8 K/mm3 (4.8-10.8)
[2020-10-04 04:21] LABS: Chloride 108 mmol/L (98-107); Potassium 4.2 mmoL/L (3.5-5.1); Sodium 140 mmol/L (136-145)
[2020-10-04 04:23] LABS: Blood Urea Nitrogen 14 mg/dl (9-20); Creatinine Clearance Estimated 80 mL/min (50-200); Estimated Glomerular Filt Rate 85 ml/min (>60); GFR (African American) 103 ML/MIN (>60)
[2020-10-04 04:24] LABS: Anion Gap 9.2 mEq/L (5-15); Calcium 8.8 mg/dl (8.4-10.2); Carbon Dioxide 27 mmol/L (22.0-30.0); Cholesterol 117 mg/dl (140-200); Triglycerides 101 mg/dl (30-150); VLDL Cholesterol 20 mg/dL (0-40)
[2020-10-04 04:25] LABS: Chol/HDL Ratio 3.3 (1-3.5); HDL Cholesterol 35 mg/dl (40-60)
[2020-10-04 04:28] LABS: Hemoglobin 12.3 g/dL (14.1-18.0)
[2020-10-04 04:35] LABS: Direct LDL Cholesterol 53.17 mg/dL (100-129)
[2020-10-04 04:36] LABS: Troponin I 0.44 ng/ml (0.00-0.034)
[2020-10-04 04:47] LABS: Glucose 104 mg/dl (74-100)
[2020-10-04 06:30] LABS: POC Glucose,Bedside 95 (70-110)
--- NOTE | 2020-10-04 07:12 | PC.NURSE ---
PT. HAS NOT C/O CP, N/V/D, DIZZINESS, OR SOA. C/O H/A; TX WITH TYLENOL. NSR PER CARDIAC MONITORY. REPORT GIVEN TO Amor KHAN RN
--- NOTE | 2020-10-04 07:34 | HMH.PHAVTE ---
[facility] Pharmacy VTE Monitoring - Patient Demographics Admission date: 10/03/20 Report Date: 10/04/20 Time: 07:34 Allergies/Adverse Reactions: Patient Allergies No Known Allergies Allergy (Verified 04/30/20 07:06) Height: 1.75 m Weight: 75.523 kg Patient Problems: Current Active Problems Unstable angina pectoris (Acute) RBBB (Acute) Tobacco use (Acute) Diabetes mellitus (Acute) - VTE Risk Labs: VTE Related Lab Results Hgb 12.3 g/dL (14.1-18.0) L D 10/04/20 04:00 Hct 38.0 % (42.0-52.0) L 10/04/20 04:00 Plt Count 199 K/mm3 (142-424) 10/04/20 04:00 BUN 14 mg/dl (9-20) 10/04/20 04:00 Creatinine 0.90 mg/dl (0.66-1.25) D 10/04/20 04:00 Estimated Creat Clear 80 mL/min (50-200) 10/04/20 04:00 VTE Score: 1 VTE Risk Level: Very Low Risk - Prophylaxis VTE Prophylaxis Ordered?: Yes Types of VTE Prophylaxis: TEDS Knee High Location of Applied Device: Bilateral Lower Extremeties
--- NOTE | 2020-10-04 08:00 | CA_ITS ---
APPROVED REPORT EXAM: Comprehensive 2D, Doppler, and color-flow Echocardiogram General Lot Attendant: Holly Dennison CRT Ht: 5 ft 9 in Wt: 170lbs BSA: 1.93 BP: 120/74 mmHg Indications: Diabetes, Hyperlipidemia 2D Dimensions LVOT 1.89 cm (M/F) 1.5-2.5 M-Mode Dimensions RVDd 1.88 cm (0.9-2.6) LA Diam 3.58 cm (1.9-4.0) LVDd 5.27 cm (3.5-5.7) Ao Diam 3.63 cm (2.0-3.7) LVDs 3.09 cm (3.5-5.7) IVSd 1.07 cm (0.6-1.1) PWd 0.81 cm (0.6-1.1) EF (Teich) 71.90% FS 41.40% EDV (Teich) 133.60 mL ESV (Teich) 37.60 mL LV Diastology E Decel Time 207.00 (160-240 msec) E/A Ratio 1.20 MED E' 8.60 (< 7 cm/sec) MED A' 10.20 cm/s E'/MED E' Ratio 9.08 (>14) LAT E' 10.20 (<10 cm/sec) LAT A' 8.10 cm/s E/LAT E' Ratio 7.66 (>14) Aortic Valve AO Peak GR. 6.00 mmHg Mitral Valve MV A Velocity 65.00 (40-130 cm/s) E/A Ratio 1.20 MV Decel. Time 207.00 (160-240 ms) Pulmonary Valve PV Peak Velocity 86.00 (50-150 cm/s) Tricuspid Valve TR P. Velocity 116.00 cm/s RAP Estimate 10.00 mmHg RVSP 15.40 mmHg Left Ventricle Left atrium is normal size, left ventricle is normal size, there is no concentric left ventricular hypertrophy, visually estimated ejection fraction 55% with no regional wall motion abnormality, diastolic parameters are within normal range. Right Ventricle Right atrium and right ventricle are normal size and contractility. Aortic Valve Aortic valve is minimally thickened and fibrosed, there is no aortic stenosis or aortic insufficiency. Mitral Valve Mitral valve is grossly normal, there is trace mitral regurgitation. Tricuspid Valve Tricuspid valve grossly normal, there is trace tricuspid regurgitation, tricuspid regurgitation jet velocity is inadequate for calculation of the right ventricular systolic pressure. Pulmonic Valve Pulmonic valve is poorly visualized. Great Vessels Aortic root is normal size. Pericardium No significant pericardial effusion noted. Conclusion 1. Normal left ventricular size, preserved left ventricular systolic function, visually estimated ejection fraction 55% with no regional wall motion abnormality, diastolic parameters are within normal range. 2. Trace mitral and tricuspid regurgitation. 3. No significant pericardial effusion noted. Electronically signed by : Sumanth Keller, 10/04/2020 09:28:45
--- NOTE | 2020-10-04 08:09 | HMH.PHAINT ---
MEDICATION RECONCILIATION COMPLETE ON PATIENT USING EXTERNAL FILL HISTORY FROM PHARMACY. -SERGIO CASTRO, CHANTELLD
--- NOTE | 2020-10-04 08:42 | HMH.HP ---
*Admission Date: 10/03/20 <EboniJennifer 10/04/20 08:54> *Chief complaint: Chest pain <Jennifer Lyn 10/04/20 08:54> *History of present illness: Mr. Roy is a 65-year-old male patient with a history of hypertension, type 2 diabetes mellitus, hyperlipidemia, previous CVA, and anemia who presented to [facility] emergency room for evaluation after experiencing chest tightness while washing his car yesterday evening. He stated he waited about an hour before coming in for evaluation. He denies any associated systems to include shortness of breath nausea, vomiting, and palpitations. He states he has not had this discomfort before. In the emergency room he was given nitroglycerin at which time his pain was resolved. Initial troponin I was negative but then Troponin I's were elevated at 0.33 and 0.44. Electrolytes were normal; BUN was 14 and creatinine 1.2. Blood sugar was 148.Chest x-ray showed no acute findings and revealed coarsening of the bronchovascular markings which may be seen with smoking-related lung disease and nonspecific increased markings in the right suprahilar region and anterior clear space possibly due to summation artifact. Patient has also had an echocardiogram with pending results. This morning patient denies any pain and shortness of breath. He did not sleep during the night. Remains n.p.o. for cardiac consultation. <EboniJennifer 10/04/20 09:00> [facility] History Medical History: Reports:: Cerebrovascular Accident, Diabetes Mellitus Type 2, Hyperlipidemia, Hypertension, Transient Ischemic Attacks (TIA) Denies:: Cancer, Diabetes Mellitus Type 1, Internal Pacemaker, MRSA, Seizures <Jennifer Lyn 10/04/20 08:54> *Have you ever received a pneumonia vaccine?: Yes <Jennifer Lyn 10/04/20 08:54> *Have you received a flu vaccine this season?: Yes <Jennifer Lyn 10/04/20 08:54> Other Medical History: Reports: Anemia <Jennifer Lyn 10/04/20 08:54> Other Surgeries: Yes: No Previous Surgery, Colonoscopy, EGD. No: Pacemaker <Jennifer Lyn 10/04/20 08:54> Amputation: No <Jennifer Lyn 10/04/20 08:54> Fractures: No <Jennifer Lyn 10/04/20 08:54> - *Social History Smoking Status: Current some day smoker <EboniJennifer Kanu 10/04/20 08:54> Tobacco Type: cigarettes <Jennifer Lyn 10/04/20 08:54> # Packs/Day (cigarettes): 1 <EboniJennifer Kanu 10/04/20 08:54> #Yrs smoked (if former smoker): 2 <EboniJennifer 10/04/20 08:54> Alcohol Intake: never <EboniJennifer 10/04/20 08:54> Alcohol Intake Frequency:: holidays/special occasions only <LynJennifer Kanu 10/04/20 08:54> Substance Use Type: denies use <EboniJennifer 10/04/20 08:54> *Occupational Status:: employed <LynJennifer 10/04/20 08:54> Housing: house <LynJennifer 10/04/20 08:54> Household Members: spouse <EboniJennifer 10/04/20 08:54> *Travel in the last 8 weeks: None <LynJennifer 10/04/20 08:54> Family Hx:: Diabetes <LynJennifer 10/04/20 08:54> Review of Systems - Constitutional Reports headache(s) (After nitroglycerin), Denies chills <Lyn,Jennifer 10/04/20 08:54> - Eyes Reports change in vision <Jennifer Lyn 10/04/20 08:54> - ENT Denies ear pain, Denies sore throat <Lyn,Jennifer 10/04/20 08:54> - *Cardiovascular Reports chest pain, Denies excessive sweating, Denies shortness of breath, Denies irregular heart rhythm, Denies leg swelling <Lyn,Jennifer 10/04/20 08:54> - *Respiratory Denies chest congestion, Denies cough, Denies shortness of breath <Lyn,Jennifer 10/04/20 08:54> - *Gastrointestinal Denies change in stools, Denies constipation, Denies heartburn, Denies bright, red blood in stools, Denies nausea, Denies vomiting <Jennifer Lyn - 10/04/20 08:54> Comments: Patient has had several EGDs and colonoscopies per Dr. Gómez <Jennifer Lyn 10/04/20 08:54> - *Genitourinary Denies difficulty urinating <Jennifer Lyn 10/04/20 08:54> - *Musculoskeletal De
--- NOTE | 2020-10-04 10:22 | HMH.CNCARD ---
History of Present Illness Consult date: 10/04/20 Requesting physician: Lobo Rondon Consult reason: chest pain Chief complaint: Chest pain History of present illness: 65-year-old male admitted to [facility] with non-STEMI. Patient arrived to the ED last evening stated he began having some chest tightness while he was working on his car. Patient stated he had to take a rest in order for the chest pain to resolve. Patient states wants resuming working on his car, the chest pain began again. Patient describes chest pain as tightness in the chest nonradiating. Patient states since on arrival to the ED he was given nitroglycerin which seemed to relieve his chest pain. Nitro patch is intact. States shortness of breath with the chest pain. Patient denied palpitations or dizziness. Patient denies nausea or vomiting. Patient denies any history of cardiac disease. Patient denies any family history of cardiac disease. Patient denies history of hypertension. Patient is a known diabetic with history of hyperlipidemia. This is managed through PCP. Patient did state he had a stroke 2018 with no deficits. Patient states he has been taking aspirin 81 mg since the stroke. Patient did say that he does have some bleeding issues especially from the colon. Patient does have history of GI bleed. Patient did undergo colonoscopy a few months ago. No real determinant of cause for the bleeding. Patient is a smoker. States he smokes 1 pack/day and has for over 20+ years. Chest x-ray did reveal some bronchial worsening possibly due to his cigarette smoking. This will be managed through PCP. vp communications reveals sinus rhythm with a right bundle branch block. Blood pressure stable. Lab revealed troponin ranges 0.33-0.44. LDL 53. Patient is on statin therapy at this time. Discussed plan of care with PCP and Dr. Huddleston. Patient will be set up for a left heart catheterization today due to elevated troponins, diabetes and hyperlipidemia. Discussed with patient the risk and benefits of undergoing left heart catheterization with right wrist access. Patient verbalized understanding and is agreeable to procedure. Echocardiogram will also be obtained today to assess LV function and valve status. Pending on the results of the left heart catheterization and echocardiogram, medication changes and therapy treatment may be recommended. Thank you for allowing cardiology to participate in the care of this patient. [facility] History I have reviewed the patient's past medical history: Yes Medical History: Reports:: Cerebrovascular Accident, Diabetes Mellitus Type 2, Hyperlipidemia, Hypertension, Transient Ischemic Attacks (TIA) Denies:: Cancer, Diabetes Mellitus Type 1, Internal Pacemaker, MRSA, Seizures *Have you ever received a pneumonia vaccine?: Yes *Have you received a flu vaccine this season?: Yes Other Medical History: Reports: Anemia Other Surgeries: Yes: No Previous Surgery, Colonoscopy, EGD. No: Pacemaker Amputation: No Fractures: No - *Social History Smoking Status: Current some day smoker Tobacco Type: cigarettes # Packs/Day (cigarettes): 1 #Yrs smoked (if former smoker): 2 Alcohol Intake: never Alcohol Intake Frequency:: holidays/special occasions only Substance Use Type: denies use *Occupational Status:: employed Housing: house Household Members: spouse *Travel in the last 8 weeks: None Family Hx:: Diabetes Meds Home Medications Medication Instructions Recorded Confirmed Type Dapagliflozin/Metformin HCl 1 tab PO DAILY 11/08/17 10/04/20 History [Xigduo Xr 5 mg-1,000 mg Tablet] Aspirin [Aspirin 81mg EC Tab] 81 mg PO DAILY 12/03/17 10/04/20 History Atorvastatin Calcium [Atorvastatin 40 mg PO DAILY 12/03/17 10/04/20 History 40mg Tab] Ferrous Sulfate, Dried [Iron 160mg 320 mg PO BID 09/15/19 10/04/20 History ER Tab] Allergies Allergy/AdvReac Type Severity Reaction Status Date / Time No Known Allergies Allergy Verified
[2020-10-04 11:43] LABS: POC Glucose,Bedside 101 (70-110)
--- NOTE | 2020-10-04 15:58 | HMH.DCSUM ---
General - General Admission date:: 10/03/20 <Lobo Rondon - 10/04/20 20:05> 10/03/20 <Jennifer Lyn - 10/04/20 16:15> Discharge date: 10/04/20 <Jennifer Lyn - 10/04/20 16:15> HPI HPI: Mr. Roy is a 65-year-old male patient with a history of hypertension, type 2 diabetes mellitus, hyperlipidemia, previous CVA, and anemia who presented to [facility] emergency room for evaluation after experiencing chest tightness while washing his car yesterday evening. He stated he waited about an hour before coming in for evaluation. He denies any associated systems to include shortness of breath, nausea, vomiting, and palpitations. He stated he had not had this discomfort before. In the emergency room he was given nitroglycerin at which time his pain was resolved. Initial troponin I was negative but then Troponin I's were elevated at 0.33 and 0.44. Electrolytes were normal; BUN was 14 and creatinine 1.2. Blood sugar was 148. Chest x-ray showed no acute findings and revealed coarsening of the bronchovascular markings which may be seen with smoking-related lung disease and nonspecific increased markings in the right suprahilar region and anterior clear space possibly due to summation artifact. Patient has also had an echocardiogram with pending results. The AM after admission morning patient denied any pain and shortness of breath. He did not sleep during the night. He remained n.p.o. for cardiac consultation. <EboniTanyaJennifer - 10/04/20 16:15> Hospital Course Hospital Course: Patient was seen by cardiology in the AM and cardiac cath was scheduled. Following are the results: IMPRESSION Severe three-vessel coronary artery disease Normal ejection fraction Elevated LVEDP PLAN 1. Patient be transferred to [facility] for coronary bypass surgery Patient denied chest pain and shortness of breath throughout his stay. Vital signs remained stable. Arrangements were made for patient to be transferred to [facility] for coronary bypass surgery. See data for tests results. At the time of discharge patient was stable and satisfactory. Medications as per cardiology. <EboniJennifer - 10/04/20 16:15> Objective Vital signs: Temp Pulse Resp BP Pulse Ox 97.7 F 67 16 108/65 L 95 10/04/20 18:50 10/04/20 18:50 10/04/20 18:50 10/04/20 18:50 10/04/20 18:50 <Lobo Rondon - 10/04/20 20:05> Temp Pulse Resp BP Pulse Ox 98.2 F 78 18 131/74 99 10/04/20 11:45 10/04/20 14:37 10/04/20 11:45 10/04/20 14:37 10/04/20 14:37 <Jennifer Lyn - 10/04/20 16:15> Narrative: Exam Vital signs and Labs for Last 24 Hours: Temp Pulse Resp BP Pulse Ox 98.2 F 74 18 116/76 99 10/04/20 08:00 10/04/20 08:00 10/04/20 08:00 10/04/20 08:00 10/04/20 08:00 Laboratory Results - last 24 hr 10/03/20 21:20: WBC 8.1, RBC 4.81, Hgb 13.8 L, Hct 42.0, MCV 87.2, MCH 28.8, MCHC 33.0, RDW 13.8, Plt Count 230, MPV 7.7, Neut % (Auto) 61.9, Lymph % (Auto) 28.9, [place] % (Auto) 6.5, Eos % (Auto) 2.2, Baso % (Auto) 0.5, Neut # (Auto) 5.0, Lymph # (Auto) 2.4, [place] # (Auto) 0.5, Eos # (Auto) 0.2, Baso # (Auto) 0.0 10/03/20 21:20: Sodium 138, Potassium 4.0, Chloride 103, Carbon Dioxide 29, Anion Gap 10.0, BUN 14, Creatinine 1.20, Estimated Creat Clear 68, Estimated GFR 61, Est GFR ( Amer) 74, Glucose 148 H, Calcium 9.4, Total Bilirubin 0.4, Direct Bilirubin 0.2, Conjugated Bilirubin 0.0, Indirect Bilirubin 0.2, Unconjugated Bilirubin 0.2, AST 22, ALT 23, Alkaline Phosphatase 64, Troponin I < 0.01, C-Reactive Protein 1.2, Total Protein 7.3, Albumin 4.8 10/03/20 21:20: ESR 1 10/03/20 21:20: Procalcitonin 0.046 10/03/20 21:30: Chlamy pneumoniae PCR Not detected, Adenovirus (PCR) Not detected, B. pertussis DNA (PCR) Not detected, Coronavirus OC43 (PCR) Not detected, Coronavirus HKU1 (PCR) Not detected, Coronavirus 229E (PCR) Not detected, SARS-CoV-2 (PCR) Not detected, Moses
[2020-10-04 17:01] LABS: POC Glucose,Bedside 215 (70-110)
--- NOTE | 2020-10-04 17:44 | ECG_ITS ---
APPROVED REPORT Exam: Resting ECG HR:56 bpm ECG Measurements Heart Rate 56 AXES AZ 140 P 38 QRSd 134 QRS 21 QT 442 T 76 QTc 426 Conclusion Sinus bradycardia Right bundle branch block Abnormal ECG Electronically signed by : Cem Armas, 10/06/2020 17:48:36
--- NOTE | 2020-10-04 18:22 | PC.NURSE ---
PAMELA CARRION CAME TO THIS RN STATING THAT THE CARDIAC STRIP READ ST ELEVATION. THIS RN ALONG WITH AUTOMOBILE BODY CUSTOMIZER, Amor FINNEY RN PERFORMED AN EKG. THIS RN ALONG WITH PAMELA HINES COMPARED AND FOUND NO CHANGES FROM PREVIOUS READING. THIS RN REAPPLIED LEADS AND PRINTED A NEW CARDIAC STRIP WHICH SHOWED NO CHANGES FROM PREVIOUS CARDIAC STRIP. THIS RN SPOKE WITH DR. BENITEZ AND REPORTED FINDINGS. MD INQUIRED IF PATIENT HAD ANY PROPHYLAXIS ORDERED. THIS RN INFORMED DR. BENITEZ THAT PATIENT DOES NOT. MD REQUESTED THAT THIS RN PHONE DR. GIMENEZ AND INQUIRE IF PATIENT IS IN NEED OF ANY MEDICATIONS WHILE WAITING TRANSFER. THIS RN SPOKE WITH DR. GIMENEZ WHO ORDERED PATIENT TO HAVE 5,000U BOLUS OF HEPARIN IV AND THEN CONTINUE WITH A 1,000U HEPARIN DRIP. THIS RN SPOKE WITH JAYRO JOHNSTON TO REQUEST ORDERS FOR PT/PTT LAB DRAW. PER JAYRO, PT/PTT IS TO BE DRAWN EVERY 6HRS UNTIL 10/05/2020 IN AM.
[2020-10-04 19:25] LABS: Activated Partial Thrombo Time 30.5 seconds (22.8-30.6); INR 0.96 (0.9-1.1); Prothrombin Time 11.4 seconds (10.1-12.5)
--- NOTE | 2020-10-04 19:32 | PC.NURSE ---
THIS RN UNABLE TO START HEPARIN DRIP DUE TO PTT NOT RESULTED OF NOW. THIS RN DID PASS ALONG IN REPORT TO Megan BONE RN THAT HEPARIN DRIP NEEDED TO BE STARTED ONCE PTT RESULTS. RN VERBALIZED AN UNDERSTANDING. NO OTHER CONCERNS AT THIS TIME.
[2020-10-04 21:54] LABS: POC Glucose,Bedside 164 (70-110)
--- NOTE | 2020-10-04 22:17 | PC.NURSE ---
PT BEING TRANSFERRED VIA STRETCHER WITH EMS TO DIFFERENT FACILITY AT 2217
--- NOTE | 2020-10-05 00:18 | PC.NURSE ---
Patient transferred to [facility] via EMS at 2215 with Heparin Drip 1000 unit/hr; Right Radial band removed at 2200 with non-adherent pad covered with Tegaderm dressing applied securely. Cath access sight Right Radial dressing in place with no drainage noted at time of transfer. Patient VS stable BP 160/86, HR 80, RR 20, Temp 97.7, O2 99%; denies any pain or SOA at time of transfer. Report called to Sowmya Morales ([phone]) at [facility] at 2145.
== END 2020-10-04 22:15 | disposition short-term general hospital (02) | DRG 282 ==
LOC: ER 22:53 → 2ND 23:06
PROVIDERS: Internal Medicine; Admitting Provider Family Medicine; Emergency Provider Emergency Medicine; PCP Family Medicine; Visit Provider Family Medicine
PROC: 4A023N7 Measurement of Cardiac Sampling and Pressure, Left Heart, Percutaneous Approach (ICD-10-PCS; principal; 2020-10-04 13:00)
DX: I21.4 Non-ST elevation (NSTEMI) myocardial infarction (principal); E11.9 Type 2 diabetes mellitus without complications; I10 Essential (primary) hypertension; Z72.0 Tobacco use; Z79.84 Long term (current) use of oral hypoglycemic drugs; D64.9 Anemia, unspecified; Z79.899 Other long term (current) drug therapy
CPT/HCPCS: 36415; 71046; 80048; 80061; 80076; 82962; 83735; 84145; 84484; 85025; 85610; 85651; 85730; 86140; 87581; 87633; 87798; 93005; 93306; 93458; 96365; 99152; 99284; C1725; C1769; J1644; Q9967

== ENCOUNTER → 2020-11-15 09:46 | Outpatient (CLI) | payer BC, SELFPAY ==
--- NOTE | 2020-11-15 09:51 | XR_ITS ---
PROCEDURE: XR CERVICAL SPINE MIN 6V CLINICAL INDICATION: bilateral arm pain COMPARISON: No exams were available for comparison FINDINGS: No fracture or dislocation. No lytic or blastic change. There is normal mineralization. Mild degenerative disc disease C5-C6 and C6-C7 greater at C6-C7. No foraminal narrowing. No acute fracture or dislocation. No lytic or blastic change. Nonspecific nuchal ligament calcification noted posterior to C4 and C5. There is mild head tilt toward the right. Mild facet arthritic changes at C 4 and C5. Other findings:None. IMPRESSION: Mild cervical spondylosis as described above Dictated by: Francois Jasso MD 11/15/2020 10:50 Francois Jasso MD in [place] 11/15/2020 10:50
--- NOTE | 2020-11-15 09:51 | XR_ITS ---
PROCEDURE: XR CHEST 2V CLINICAL HISTORY: bilateral arm pain COMPARISON: CR CXR CHEST(2 VIEWS-NOT PORTABLE) from 05/08/2014 CR CXR2V XR chest 2V from 11/08/2017 CR XR CHEST 2V from 10/03/2020 FINDINGS: Prior CABG. Normal heart size. The lungs are clear without infiltrates, suspicious nodules, or pleural effusions. No acute bony abnormalities. IMPRESSION: Interval CABG otherwise negative Dictated by: Francois Jasso MD 11/15/2020 10:48 Francois Jasso MD in [facility] 11/15/2020 10:48
[2020-11-15 10:22] LABS: Basophils # 0.1 K/mm3 (0-0.2); Basophils % 0.8 % (0.1-2.0); Eosinophils # 0.3 K/mm3 (0.0-0.4); Eosinophils % 4.5 % (0.1-12.0); Hematocrit 40.8 % (42.0-52.0); Hemoglobin 12.5 g/dL (14.1-18.0); Lymphocytes # 1.4 K/mm3 (0.7-4.5); Mean Corpuscular HGB Conc 30.8 g/dL (31.8-35.4); Mean Corpuscular Hemoglobin 27.7 pg (27.0-31.2); Mean Corpuscular Volume 89.9 fl (80-94); Mean Platelet Volume 7.9 fl (7.4-10.4); Monocytes # 0.7 K/mm3 (0.1-1.0); Monocytes % 8.9 % (1.7-9.3); Neutrophils % 66.8 % (37.0-80.0); Platelet Count 294 K/mm3 (142-424); Red Blood Count 4.53 M/mm3 (4.60-6.20); Red Cell Distribution Width 14.2 % (11.5-17.5); White Blood Count 7.5 K/mm3 (4.8-10.8)
[2020-11-15 10:30] LABS: Chloride 102 mmol/L (98-107); Potassium 4.5 mmoL/L (3.5-5.1); Sodium 136 mmol/L (136-145)
[2020-11-15 10:33] LABS: Alanine Aminotransferase 58 U/L (12-78); Albumin Level 4.6 g/dl (3.5-5.0); Alkaline Phosphatase 85 U/L (38-126); Anion Gap 13.5 mEq/L (5-15); Aspartate Amino Transferase 35 U/L (17-59); Bilirubin,Indirect 0.3 mg/dL (0.0-0.9); Bilirubin,Total 0.3 mg/dl (0.2-1.3); Bilirubin,Unconjugated 0.2 mg/dL (0.0-1.1); Blood Urea Nitrogen 16 mg/dl (9-20); Calcium 9.6 mg/dl (8.4-10.2); Carbon Dioxide 25 mmol/L (22.0-30.0); Estimated Glomerular Filt Rate 97 ml/min (>60); GFR (African American) 118 ML/MIN (>60); Glucose 171 mg/dl (74-100); Total Protein,Serum 7.7 g/dl (6.3-8.2)
[2020-11-15 10:52] LABS: Troponin I < 0.01 ng/ml (0.00-0.034)
[2020-11-15 11:02] LABS: Free T4 (Free Thyroxine) 1.54 ng/dl (0.78-2.19)
[2020-11-15 11:04] LABS: Thyroid Stimulating Hormone 2.79 uIU/mL (0.465-4.68)
[2020-11-15 11:15] LABS: Prostate Specific Ag Screen 0.1 ng/ml (0.0-4.0)
--- NOTE | 2020-11-15 16:00 | CT_ITS ---
PROCEDURE INFORMATION: Exam: CTA Chest With Contrast Exam date and time: 11/15/2020 4:00 PM Age: 65 years old Clinical indication: Other: Bilateral arm pain; Additional info: Bilateral arm pain, abnormal ekg TECHNIQUE: Imaging protocol: Computed tomographic angiography of the chest with contrast. 3D rendering (Not supervised by radiologist): MIP and/or 3D reconstructed images were created by the technologist. Radiation optimization: All CT scans at this facility use at least one of these dose optimization techniques: automated exposure control; mA and/or kV adjustment per patient size (includes targeted exams where dose is matched to clinical indication); or iterative reconstruction. Contrast material: ISOVUE 370; Contrast volume: 70 ml; Contrast route: INTRAVENOUS (IV); COMPARISON: CR XR CHEST 2V 11/15/2020 9:53 AM FINDINGS: Pulmonary arteries: Normal. No pulmonary emboli. Aorta: Unremarkable. No aortic aneurysm. No aortic dissection. Lungs: Unremarkable. No consolidation. No masses. Pleural spaces: Unremarkable. No pneumothorax. No pleural effusion. Heart: Unremarkable. No cardiomegaly. No pericardial effusion. Lymph nodes: Bilateral hilar region adenopathy measuring up to 1.8 cm in short axis diameter within the right hilum. Mildly enlarged precarinal lymph node measuring 1.2 cm in short axis diameter. Bones/joints: Median sternotomy. Soft tissues: Unremarkable. IMPRESSION: Nonspecific mediastinal and bilateral hilar region lymphadenopathy.
--- NOTE | 2020-11-15 16:10 | CA_ITS ---
APPROVED REPORT EXAM: Comprehensive 2D, Doppler, and color-flow Echocardiogram Metal Dealer: Elvia Harper, RCS, RVS Ht: 5 ft 9 in Wt: 159lbs BSA: 1.87 HR: 84 bpm BP: 144/88 mmHg Rhythm: RBBB Indications: bilateral arm pain, S/P CABG x3-10/08/20, pale palor, HLD, Hx-CVA 2D Dimensions IVSd 0.83 cm LVEF (Visual) 64.50 % PWd 0.61 cm LA Volume 35.00 mL LVDd 4.48 cm LA Volume Index 18.70 mL/m2 (M/F) 16-34 LVDs 2.91 cm Left Atrium 3.06 cm LVOT 1.77 cm (M/F) 1.5-2.5 M-Mode Dimensions RVDd 2.57 cm (0.9-2.6) LA Diam 3.23 cm (1.9-4.0) LVDd 4.51 cm (3.5-5.7) Ao Diam 3.23 cm (2.0-3.7) LVDs 2.32 cm (3.5-5.7) IVSd 0.97 cm (0.6-1.1) PWd 0.97 cm (0.6-1.1) EF (Teich) 80.10% EPSs 0.25 cm FS 48.60% EDV (Teich) 92.90 mL TAPSE 1.13 (<1.7) ESV (Teich) 18.50 mL LV Diastology E Decel Time 183.00 (160-240 msec) E/A Ratio 1.32 MED E' 9.30 (< 7 cm/sec) MED A' 10.70 cm/s E'/MED E' Ratio 8.12 (>14) LAT E' 9.60 (<10 cm/sec) LAT A' 7.60 cm/s E/LAT E' Ratio 7.86 (>14) Aortic Valve LVOT Max 124.00 (70-110 cm/s) LVOT VTI 21.40 cm AoV Peak Chad. 128.00 (50-130 cm/s) AO Peak GR. 6.60 mmHg AO Mean GR. 3.50 (<5 mmHg) AO VTI 22.68 (18-25 cm) GEOFFREY (VTI) 2.32 (2.5-4.5 cm2) Mitral Valve MV A Velocity 57.00 (40-130 cm/s) E/A Ratio 1.32 MV Decel. Time 183.00 (160-240 ms) Pulmonary Valve PV Peak Velocity 79.00 (50-150 cm/s) Tricuspid Valve TR P. Velocity 159.00 cm/s RAP Estimate 10.00 mmHg RVSP 20.10 mmHg Left Ventricle Left atrium is mildly enlarged, left ventricle is normal size mild concentric left ventricular hypertrophy, visually estimated ejection fraction 55% with no regional wall motion abnormality, diastolic parameters are within normal range. Right Ventricle Right atrium and right ventricle are normal size and contractility. Aortic Valve Aortic valve is minimally thickened and fibrosed, there is no aortic stenosis or aortic insufficiency. Mitral Valve Mitral valve is grossly normal, there is mild mitral regurgitation. Tricuspid Valve Tricuspid grossly normal, there is mild tricuspid regurgitation, tricuspid regurgitation jet velocity is inadequate for calculation of the right ventricular systolic pressure. Pulmonic Valve Pulmonic valve is poorly visualized. Great Vessels Aortic root is normal size. Pericardium No significant pericardial effusion noted. Conclusion 1. Mildly enlarged left atrium, normal left ventricular size, mild concentric left ventricular hypertrophy, visually estimated ejection fraction 55% with no regional wall motion abnormality, diastolic parameters are within normal range. 2. Mild mitral and tricuspid regurgitation. 3. No significant pericardial effusion noted. Electronically signed by : Sumanth Keller, 11/15/2020 17:18:41
== END ==
PROVIDERS: PCP Family Medicine; Visit Provider Nurse Practitioner Family
DX: E11.69 Type 2 diabetes mellitus with other specified complication (principal); E78.2 Mixed hyperlipidemia; I25.10 Atherosclerotic heart disease of native coronary artery without angina pectoris; I45.10 Unspecified right bundle-branch block; M79.601 Pain in right arm; M79.602 Pain in left arm; R00.0 Tachycardia, unspecified; R23.1 Pallor; Z86.73 Personal history of transient ischemic attack (TIA), and cerebral infarction without residual deficits; E78.5 Hyperlipidemia, unspecified; Z79.84 Long term (current) use of oral hypoglycemic drugs
CPT/HCPCS: 36415; 71046; 71275; 72052; 80048; 80076; 84439; 84443; 84484; 85025; 93306; G0103; Q9967

== ENCOUNTER 2020-11-30 09:54 | Outpatient (RCR) | payer BC, SELFPAY | END 2021-02-28 10:45 | disposition home or self-care (01) | LOC: PT 09:54 | PROVIDERS: Visit Provider Internal Medicine Cardiovascular Disease | DX: Z95.1 Presence of aortocoronary bypass graft (principal) | CPT/HCPCS: 93798 ==

== ENCOUNTER 2021-01-09 22:56 | Emergency (ER) | payer BC, SELFPAY ==
[2021-01-09 22:59] VITALS: BP 136/82; PULSE 65; RESP 16; TEMP 37.1; O2SAT 100; BMI 23.6
--- NOTE | 2021-01-09 23:11 | [facility]H.EDGENADL ---
ED Disposition Clinical Impression: Right flank pain Disposition: Home, Self-Care Condition on Discharge: Fair Instructions: DI for Flank Pain Additional Instructions: You have been evaluated for right flank pain. No clear cause identified. Please monitor your symptoms. Take anti-inflammatories like Aleve or naproxen. Follow-up with your primary care doctor within 24 to 48 hours. Return to the emergency department at once if you have any new or worsening pain, vomiting, other concerns. Referrals: Lobo Rondon MD [Primary Care Provider] - Time of Disposition: 04:54 - Critical Care Critical Care Time: No Attestation: On 01/09/21, the high probability of a clinically significant, sudden or life threatening deterioration of the following system(s) required my full and direct attention, intervention and personal management. The time I documented below is in addition to time spent performing reported procedures but includes the following listed in this critical care notation. Medical Decision Making - Medical Records Medical records reviewed: Yes: I reviewed the patient's medical records. - Alex Inquiry Pt receiving controlled substance: No Vital Signs: 01/09/21 22:59 01/09/21 23:30 01/10/21 00:00 Temperature 98.7 F Temperature Source Oral Pulse Rate 70 66 Pulse Rate [Right Brachial] 65 Respiratory Rate 16 Blood Pressure 135/81 113/75 Blood Pressure [Right Arm] 136/82 Blood Pressure Mean Blood Pressure Mean [Right Arm] 100 Blood Pressure Source [Right Arm] Automatic Cuff Blood Pressure Position [Right Arm] Sitting 02 Sat by Pulse Oximetry 100 97 96 Oxygen Delivery Method Room Air Room Air Room Air 01/10/21 01:00 01/10/21 01:30 01/10/21 02:00 Temperature Temperature Source Pulse Rate 53 L 68 65 Pulse Rate [Right Brachial] Respiratory Rate Blood Pressure 115/68 106/67 L 111/75 Blood Pressure [Right Arm] Blood Pressure Mean Blood Pressure Mean [Right Arm] Blood Pressure Source [Right Arm] Blood Pressure Position [Right Arm] 02 Sat by Pulse Oximetry 96 96 96 Oxygen Delivery Method Room Air Room Air 01/10/21 02:30 01/10/21 03:00 01/10/21 03:30 Temperature Temperature Source Pulse Rate 60 63 64 Pulse Rate [Right Brachial] Respiratory Rate Blood Pressure 116/75 116/74 113/72 Blood Pressure [Right Arm] Blood Pressure Mean 91 82 Blood Pressure Mean [Right Arm] Blood Pressure Source [Right Arm] Blood Pressure Position [Right Arm] 02 Sat by Pulse Oximetry 97 97 Oxygen Delivery Method 01/10/21 04:00 Temperature Temperature Source Pulse Rate 61 Pulse Rate [Right Brachial] Respiratory Rate Blood Pressure 106/69 L Blood Pressure [Right Arm] Blood Pressure Mean 87 Blood Pressure Mean [Right Arm] Blood Pressure Source [Right Arm] Blood Pressure Position [Right Arm] 02 Sat by Pulse Oximetry 97 Oxygen Delivery Method - Lab Data Lab Results 01/09/21 23:00: Urine Color Straw, Urine Appearance Clear, Urine pH 6.5, Ur Specific Star 1.015, Urine Protein Negative, Urine Glucose (UA) 3+, Urine Ketones Negative, Urine Blood Negative, Urine Nitrate Negative, Urine Bilirubin Negative, Urine Urobilinogen 0.2, Ur Leukocyte Esterase Negative, Urine Bacteria Trace 01/09/21 23:20: WBC 5.9, RBC 4.40 L, Hgb 12.3 L, Hct 38.2 L, MCV 86.8, MCH 28.0, MCHC 32.3, RDW 15.0, Plt Count 218, MPV 7.8, Neut % (Auto) 55.9, Lymph % (Auto) 31.2, Wright % (Auto) 8.7, Eos % (Auto) 3.6, Baso % (Auto) 0.7, Neut # (Auto) 3.3, Lymph # (Auto) 1.8, Wright # (Auto) 0.5, Eos # (Auto) 0.2, Baso # (Auto) 0.0 01/09/21 23:20: Sodium 140, Potassium 4.6, Chloride 103, Carbon Dioxide 30, Anion Gap 11.6, BUN 18, Creatinine 1.20, Estimated Creat Clear 64, Estimated GFR 61, Est GFR ( Amer) 74, Glucose 140 H, Calcium 9.1, Total Bilirubin 0.4, AST 26, ALT 24, Alkaline Phosphatase 77, Total Protein 7.0, Albumin 4.3, Globulin 2.7, Albumin/Globulin Ratio 1.
[2021-01-09 23:15] LABS: Microscopic, Urine URINE MICROSCOPIC (MICROSCOPIC)
[2021-01-09 23:17] LABS: Appearance,Urine CLEAR (Clear); Bilirubin,Urine Negative (Negative); Blood, Urine Negative (Negative); Color,Urine STRAW (Yellow); Glucose,Urine (UA) 3+ (Negative); Ketones,Urine Negative (Negative); Leukocyte Esterase,Urine Negative (Negative); Nitrate,Urine Negative (Negative); PH,Urine 6.5 (5.0-8.5); Protein,Urine Negative (Negative); Specific Gravity, Urine 1.015 (1.005-1.030); Urobilinogen,Urine 0.2 EU/dl (0.2)
[2021-01-09 23:26] LABS: Basophils % 0.7 % (0.1-2.0); Eosinophils # 0.2 K/mm3 (0.0-0.4); Eosinophils % 3.6 % (0.1-12.0); Hematocrit 38.2 % (42.0-52.0); Hemoglobin 12.3 g/dL (14.1-18.0); Lymphocytes # 1.8 K/mm3 (0.7-4.5); Lymphocytes % 31.2 % (10-50); Mean Corpuscular HGB Conc 32.3 g/dL (31.8-35.4); Mean Corpuscular Volume 86.8 fl (80-94); Mean Platelet Volume 7.8 fl (7.4-10.4); Monocytes # 0.5 K/mm3 (0.1-1.0); Monocytes % 8.7 % (1.7-9.3); Neutrophils # 3.3 K/mm3 (1.8-7.8); Neutrophils % 55.9 % (37.0-80.0); Platelet Count 218 K/mm3 (142-424); White Blood Count 5.9 K/mm3 (4.8-10.8)
[2021-01-09 23:30] VITALS: BP 135/81; PULSE 70; O2SAT 97
[2021-01-09 23:32] LABS: Bacteria,Urine Trace /lpf
[2021-01-09 23:38] LABS: Albumin Level 4.3 g/dl (3.5-5.0); Albumin/Globulin Ratio 1.6 (1.1-1.8); Blood Urea Nitrogen 18 mg/dl (9-20); Carbon Dioxide 30 mmol/L (22.0-30.0); Creatinine Clearance Estimated 64 mL/min (50-200); Estimated Glomerular Filt Rate 61 ml/min (>60); GFR (African American) 74 ML/MIN (>60); Globulin 2.7 g/dL (1.3-3.2); Lipase 200 U/L (23-300); Potassium 4.6 mmoL/L (3.5-5.1); Sodium 140 mmol/L (136-145)
[2021-01-09 23:39] LABS: Alanine Aminotransferase 24 U/L (12-78); Alkaline Phosphatase 77 U/L (38-126); Anion Gap 11.6 mEq/L (5-15); Aspartate Amino Transferase 26 U/L (17-59); Bilirubin,Total 0.4 mg/dl (0.2-1.3); Calcium 9.1 mg/dl (8.4-10.2); Chloride 103 mmol/L (98-107); Glucose 140 mg/dl (74-100)
[2021-01-10] VITALS (9 sets, daily range): BP systolic 106–116; BP diastolic 67–78; PULSE 53–68; RESP 18; TEMP 37.1; O2SAT 96–97
--- NOTE | 2021-01-10 00:01 | CT_ITS ---
PROCEDURE INFORMATION: Exam: CT Abdomen And Pelvis With Contrast Exam date and time: 01/10/2021 12:01 AM Age: 65 years old Clinical indication: Abdominal pain; Localized; Patient HX: Right sided abd pain for a few days; Additional info: Abdominal pain, right flank TECHNIQUE: Imaging protocol: Computed tomography of the abdomen and pelvis with contrast. Radiation optimization: All CT scans at this facility use at least one of these dose optimization techniques: automated exposure control; mA and/or kV adjustment per patient size (includes targeted exams where dose is matched to clinical indication); or iterative reconstruction. Contrast material: ISOVUE; Contrast volume: 75 ml; Contrast route: IV; COMPARISON: CR XR KUB 03/16/2020 10:04 AM FINDINGS: Lungs: There are bibasilar dependent changes. Pleural spaces: Trace right-sided pleural effusion. Liver: Normal. No mass. Gallbladder and bile ducts: Cholelithiasis. Pancreas: Normal. No ductal dilation. Spleen: There are calcified granulomas involving the spleen. There is splenic subcapsular hypodensity measuring up to 7 mm, probable subcapsular fluid. Adrenal glands: Normal. No mass. Kidneys and ureters: Normal. No hydronephrosis. Stomach and bowel: Unremarkable. No obstruction. No mucosal thickening. Appendix: Normal appendix. Intraperitoneal space: Unremarkable. No free air. No significant fluid collection. Vasculature: Vascular calcification. Lymph nodes: Unremarkable. No enlarged lymph nodes. Urinary bladder: Unremarkable as visualized. Reproductive: Unremarkable as visualized. Bones/joints: There are degenerative changes involving the spine. Soft tissues: There is nonspecific soft tissue density at the umbilicus measuring 1.4 cm. IMPRESSION: 1. No acute inflammatory process. 2. Splenic subcapsular hypodensity laterally measuring up to 7 mm in thickness, probable subcapsular fluid collection. 3. Trace right-sided pleural effusion. 4. Additional findings as above.
[2021-01-10 03:54] LABS: D-Dimer 0.72 ug/mL (0.0-0.5)
--- NOTE | 2021-01-10 04:00 | CT_ITS ---
PROCEDURE INFORMATION: Exam: CTA Chest With Contrast Exam date and time: 01/10/2021 4:00 AM Age: 65 years old Clinical indication: Other: Elevated d dimer; Additional info: Pain with inspiration, elevated d-dimer TECHNIQUE: Imaging protocol: Computed tomographic angiography of the chest with contrast. 3D rendering (Not supervised by radiologist): MIP and/or 3D reconstructed images were created by the technologist. Radiation optimization: All CT scans at this facility use at least one of these dose optimization techniques: automated exposure control; mA and/or kV adjustment per patient size (includes targeted exams where dose is matched to clinical indication); or iterative reconstruction. Contrast material: ISOVUE 370; Contrast volume: 70 ml; Contrast route: INTRAVENOUS (IV); COMPARISON: CT ANGIO CHEST 11/15/2020 4:33 PM FINDINGS: Pulmonary arteries: No evidence of pulmonary embolus. Aorta: Unremarkable. No aortic aneurysm. No aortic dissection. Lungs: Mild scarring at the lung apices. There are bilateral posterior dependent changes. Right lower lobe pulmonary nodule measures 2 mm. There are patchy ground-glass densities at both lung bases. Pleural spaces: Unremarkable. No pneumothorax. No pleural effusion. Heart: Unremarkable. No cardiomegaly. No pericardial effusion. Lymph nodes: Mild mediastinal and right greater than left hilar adenopathy is stable. Gallbladder and bile ducts: Cholelithiasis. Spleen: There are calcified granulomas involving the spleen. Bones/joints: Previous median sternotomy. Soft tissues: Unremarkable. IMPRESSION: 1. No evidence of pulmonary embolus. 2. Patchy ground-glass densities at both lung bases, nonspecific. Consider hypoventilatory change versus edema or pneumonitis. 3. 2 mm right lower lobe pulmonary nodule. For patients at low risk (minimal or absent history of smoking and of other known risk factors), no routine follow-up is indicated. For patients at high risk (history of smoking or of other known risk factors), consider optional CT Chest at 12 months. (Reference: Florentin) 4. Mild mediastinal and right greater than left hilar adenopathy is stable. REFERENCES: Florentin Paz, et al. Guidelines for Management of Incidental Pulmonary Nodules Detected on CT Images: From the Fleischner Society 2017. Radiology. 2017;284(1):228-243.
== END 2021-01-10 05:00 | disposition home or self-care (01) ==
PROVIDERS: Emergency Provider Emergency Medicine; PCP Family Medicine
DX: R10.31 Right lower quadrant pain (principal); Z95.1 Presence of aortocoronary bypass graft; Z87.891 Personal history of nicotine dependence
CPT/HCPCS: 71275; 74177; 80053; 81001; 83690; 85025; 85378; 96365; 96375; 99283; J2405; Q9967

== ENCOUNTER → 2021-01-14 08:13 | Outpatient (CLI) | payer BC, SELFPAY ==
--- NOTE | 2021-01-14 08:15 | US_ITS ---
PROCEDURE: US ABDOMEN LIMITED CLINICAL INDICATION: CALCULUS OF GB COMPARISON: No exams were available for comparison FINDINGS: PANCREAS: Unremarkable. No obvious mass or abnormal fluid collection. No ductal dilatation LIVER: No focal liver lesions demonstrated. Homogeneous echogenicity. No intrahepatic biliary ductal dilatation evident. There is appropriate direction of blood flow within a non dilated portal vein RIGHT KIDNEY: Unremarkable. Normal size and echogenicity. No hydronephrosis GALLBLADDER: There are gallstones present. No gallbladder wall thickening, pericholecystic fluid, biliary dilatation, or pericholecystic fluid. The common bile duct is 3 mm. IMPRESSION: Cholelithiasis Dictated by: Francois Jasso MD 01/14/2021 10:36 Francois Jasso MD in [facility] 01/14/2021 10:36
== END ==
PROVIDERS: PCP Family Medicine; Visit Provider Family Medicine
DX: K80.20 Calculus of gallbladder without cholecystitis without obstruction (principal)
CPT/HCPCS: 76705

== ENCOUNTER 2021-10-23 21:05 | Emergency (ER) | payer BC, SELFPAY ==
[2021-10-23 21:37] VITALS: BP 170/99; PULSE 108; RESP 22; TEMP 36.7; O2SAT 98; BMI 25.8
--- NOTE | 2021-10-23 21:42 | XR_ITS ---
PROCEDURE INFORMATION: Exam: XR Chest Exam date and time: 10/23/2021 10:25 PM Age: 66 years old Clinical indication: Cough; Prior surgery; Surgery date: 6+ months; Surgery type: Open heart surgery TECHNIQUE: Imaging protocol: XR of the chest. Views: 2 views. COMPARISON: CR XR CHEST 2V 11/15/2020 9:53 AM FINDINGS: Lungs: Mild atelectasis in the lung bases. No consolidation. Pleural spaces: Unremarkable. No pleural effusion. No pneumothorax. Heart/Mediastinum: Midline sternotomy. No cardiomegaly. Bones/joints: Unremarkable. IMPRESSION: No acute findings.
--- NOTE | 2021-10-23 22:46 | ECG_ITS ---
APPROVED REPORT Exam: Resting ECG HR:96 bpm ECG Measurements Heart Rate 96 AXES CO 136 P 58 QRSd 134 QRS 74 QT 354 T 63 QTc 408 Conclusion SINUS RHYTHM POSSIBLE LEFT ATRIAL ENLARGEMENT [-0.1mV P-WAVE IN V1/V2] RIGHT BUNDLE BRANCH BLOCK [120+ ms QRS DURATION, UPRIGHT V1, 40+ ms S IN I/aVL/V4/V5/V6] ABNORMAL ECG UNCONFIRMED REPORT Electronically signed by : Cem Armas MD 10/24/2021 15:58:11
[2021-10-23 22:53] LABS: Coronavirus 19, PCR Not Detected (NotDetected); Influenza A, PCR Not Detected (NotDetected); Influenza B, PCR Not Detected (NotDetected)
[2021-10-23 23:14] LABS: Basophils % 0.5 % (0.1-2.0); Eosinophils # 0.1 K/mm3 (0.0-0.4); Eosinophils % 0.9 % (0.1-12.0); Hematocrit 44.1 % (42.0-52.0); Hemoglobin 14.5 g/dL (14.1-18.0); Lymphocytes # 0.7 K/mm3 (0.7-4.5); Lymphocytes % 8.8 % (10-50); Mean Corpuscular Hemoglobin 28.8 pg (27.0-31.2); Mean Corpuscular Volume 87.3 fl (80-94); Mean Platelet Volume 8.8 fl (7.4-10.4); Monocytes # 0.3 K/mm3 (0.1-1.0); Monocytes % 3.7 % (1.7-9.3); Neutrophils # 6.6 K/mm3 (1.8-7.8); Neutrophils % 86.2 % (37.0-80.0); Platelet Count 141 K/mm3 (142-424); Red Blood Count 5.05 M/mm3 (4.60-6.20); White Blood Count 7.7 K/mm3 (4.8-10.8)
[2021-10-23 23:17] LABS: MANUAL DIFFERENTIAL MANUAL DIFFERENTIAL (MANUAL DIFF)
[2021-10-23 23:26] LABS: Alanine Aminotransferase 26 U/L (12-78); Albumin Level 4.3 g/dl (3.5-5.0); Albumin/Globulin Ratio 1.5 (1.1-1.8); Alkaline Phosphatase 66 U/L (38-126); Aspartate Amino Transferase 25 U/L (17-59); Bilirubin,Total 0.5 mg/dl (0.2-1.3); Blood Urea Nitrogen 21 mg/dl (9-20); Calcium 8.7 mg/dl (8.4-10.2); Carbon Dioxide 22 mmol/L (22.0-30.0); Chloride 104 mmol/L (98-107); Creatinine Clearance Estimated 80 mL/min (50-200); Estimated Glomerular Filt Rate 113 ml/min (>60); GFR (African American) 137 ML/MIN (>60); Globulin 2.8 g/dL (1.3-3.2); Glucose 130 mg/dl (74-100); Sodium 136 mmol/L (136-145); Total Protein,Serum 7.1 g/dl (6.3-8.2)
[2021-10-23 23:32] LABS: Lymphocytes % 12 % (10-50); Monocytes % 2 % (2-9); Neutrophils % 76 % (42-76); Platelet Estimate Normal; RBC Morphology Normal; Total Cells Counted 100
[2021-10-23 23:44] LABS: Troponin I < 0.01 ng/ml (0.00-0.034)
--- NOTE | 2021-10-23 23:51 | HMH.EDGENADL ---
ED Disposition Clinical Impression: URI (upper respiratory infection) Disposition: Home, Self-Care Condition on Discharge: Fair Additional Instructions: Return to the ED for any new or worsening symptoms, or for further concerns (such as but not limited to worsening or uncontrolled pain, trouble breathing, prolonged high fevers, coughing blood). Referrals: Lobo Rondon MD [Primary Care Provider] - - Critical Care Critical Care Time: No Attestation: On 10/23/21, the high probability of a clinically significant, sudden or life threatening deterioration of the following system(s) required my full and direct attention, intervention and personal management. The time I documented below is in addition to time spent performing reported procedures but includes the following listed in this critical care notation. Medical Decision Making - Alex Inquiry Pt receiving controlled substance: No Vital Signs: 10/23/21 21:37 10/24/21 00:09 Temperature 98.1 F 98.2 F Temperature Source Oral Oral Pulse Rate 85 Pulse Rate [Right Brachial] 108 H Respiratory Rate 22 18 Blood Pressure 165/63 H Blood Pressure [Right Arm] 170/99 H Blood Pressure Mean [Right Arm] 122 Blood Pressure Source Automatic Cuff Blood Pressure Source [Right Arm] Automatic Cuff Blood Pressure Position Sitting Blood Pressure Position [Right Arm] Sitting 02 Sat by Pulse Oximetry 98 Oxygen Delivery Method Room Air Room Air - Lab Data Lab Results 10/23/21 22:46: SARS-CoV-2 (PCR) Not detected, Influenza A Untype (PCR) Not detected, Influenza Type B (PCR) Not detected 10/23/21 23:06: WBC 7.7, RBC 5.05, Hgb 14.5, Hct 44.1, MCV 87.3, MCH 28.8, MCHC 33.0, RDW 14.0, Plt Count 141 L, MPV 8.8, Neut % (Auto) 86.2 H, Lymph % (Auto) 8.8 L, Bandera % (Auto) 3.7, Eos % (Auto) 0.9, Baso % (Auto) 0.5, Neut # (Auto) 6.6, Lymph # (Auto) 0.7, Bandera # (Auto) 0.3, Eos # (Auto) 0.1, Baso # (Auto) 0.0, Total Counted 100, Neutrophils % (Manual) 76, Band Neutrophils % 10.0 H, Lymphocytes % (Manual) 12, Monocytes % (Manual) 2, Platelet Estimate Normal, RBC Morphology Normal 10/23/21 23:06: Sodium 136, Potassium 4.0, Chloride 104, Carbon Dioxide 22, Anion Gap 14.0, BUN 21 H, Creatinine 0.70, Estimated Creat Clear 80, Estimated GFR 113, Est GFR ( Amer) 137, Glucose 130 H, Calcium 8.7, Total Bilirubin 0.5, AST 25, ALT 26, Alkaline Phosphatase 66, Troponin I < 0.01, Total Protein 7.1, Albumin 4.3, Globulin 2.8, Albumin/Globulin Ratio 1.5 Result diagrams: 10/23/21 23:06 10/23/21 23:06 Orders (Tests/Meds): ORDERS Category Date Time Status EKG Request [ECG Request by /Emma] Stat Y 10/23/21 22:46 Ordered Medical Decision Narrative: DDx includes but not limited to pneumonia, URI, ACS. HDS, NAD, well appearing. On room air. Intermittently tachycardic with HR 90-110 bpm. Denies any chest pain or dyspnea here. EKG with sinus rhythm. Troponin wnl. CXR without acute findings. COVID/flu rapid swab wnl. Patient remains pain free here in the ED on reassessment, remains on room air w/ spo2>95%. Will follow with PCP soon (within 1 week). Given strict ED return precautions. General Adult HPI - General Chief complaint: Shortness of Breath/Dyspnea Stated complaint: soa Time Seen by Provider: 10/23/21 21:55 Mode of Arrival: Family Vehicle Limitations: No Limitations Description of Symptoms (Recalled from ER Triage Doc. by RN): pt describes having 2-3 days of congestion, feels similar to when he had bronchitis in the past. denies smoking. denies being around anyone with covid/flu or other viral symptoms. history of triple bypass a year ago. denies pain, only uncomfortable when he coughs. denies dyspnea. - History of Present Illness HPI narrative: 66 male w/ hx CAD presents for evaluation of chest pressure. Patient reports he has had worsened cough today that is productive with onset of central chest pressure only whenever he coughs that is uncomfortable. Does not have chest pressure o
[2021-10-24 00:09] VITALS: BP 165/63; PULSE 85; RESP 18; TEMP 36.8; O2SAT 98
== END 2021-10-24 00:10 | disposition home or self-care (01) ==
PROVIDERS: Emergency Provider Student in an Organized Health Care Education/Training Program; PCP Family Medicine
DX: J06.9 Acute upper respiratory infection, unspecified (principal); R07.89 Other chest pain; M79.602 Pain in left arm; M79.601 Pain in right arm; R00.0 Tachycardia, unspecified; Z20.822 Contact with and (suspected) exposure to COVID-19; I10 Essential (primary) hypertension; I25.10 Atherosclerotic heart disease of native coronary artery without angina pectoris; E78.5 Hyperlipidemia, unspecified; E11.9 Type 2 diabetes mellitus without complications; J45.909 Unspecified asthma, uncomplicated; Z79.02 Long term (current) use of antithrombotics/antiplatelets; Z79.84 Long term (current) use of oral hypoglycemic drugs; Z79.899 Other long term (current) drug therapy; Z87.891 Personal history of nicotine dependence; Z95.1 Presence of aortocoronary bypass graft; Z86.73 Personal history of transient ischemic attack (TIA), and cerebral infarction without residual deficits
CPT/HCPCS: 71046; 80053; 84484; 85007; 85025; 93005; 99285; C9803; U0003; U0005